=== PATIENT | female | born 1980 | race Caucasian/White ===

== ENCOUNTER → 2019-01-22 08:05 | Outpatient (CLI) | payer OTHER, SELFPAY ==
[2019-01-20 14:12] VITALS: BMI 38.0
[2019-01-22 12:18] LABS: Absolute Lymphocyte Count 1.55 X10^3/uL (0.83-4.51); Absolute Neutrophil Count 2.9 X10^3/uL (2.0-7.7); Basophil# 0.04 X10^3/uL; Basophil% 0.8 % (0-1); Eosinophil# 0.18 X10^3/uL; Eosinophils% 3.6 % (0-5); Hematocrit 39.5 % (37-47); Hemoglobin 13.2 g/dL (12.0-15.0); Lymphocyte # 1.55 X10^3/ul (4.0); Lymphocyte % 31.4 % (19-41); Mean Corp Hgb Conc 33.4 g/dL (32-36); Mean Corpuscular Hgb 29.4 pg (27.0-32.0); Mean Platelet Vol. 9.8 fl (6.2-12.0); Monocyte# 0.31 X10^3/uL; Monocyte% 6.3 % (0-10); NRBC Flagged by Analyzer 0 % (0-5); Neutrophil # 2.85 X10^3/uL (2.7-7.7); Neutrophil % 57.7 % (47-70); Platelet Count 193 K/mm3 (150-450); RBC Distribution Width CV 12.7 % (11.6-14.6); RBC Distribution Width SD 40.7 fl (35.1-43.9); Red Blood Count 4.49 M/mm3 (4.2-5.4); White Blood Count 4.9 K/mm3 (4.4-11.0)
[2019-01-22 12:31] LABS: Hemoglobin A1c 4.7 % (4.2-6.3)
[2019-01-22 12:34] LABS: Vitamin B12 371 pg/mL (211-911)
[2019-01-22 12:45] LABS: ALB/GLOB Ratio 1.1 RATIO (0.9-2.4); AST(SGOT) 13 U/L (15-37); Alanine Aminotransfer ALT/SGPT 20 U/L (13-56); Albumin, Serum 3.4 g/dL (3.2-5.0); Alkaline Phosphatase 36 U/L (45-117); Anion Gap 10 (5-15); BUN 13 mg/dL (7-18); BUN/Creat Ratio 21.3 RATIO (10-20); Calcium,Total 8.4 mg/dL (8.5-10.1); Chloride 106 mmol/L (98-107); Cholesterol 173 mg/dL (200); Creatinine, Serum 0.61 mg/dL (0.55-1.02); EST Glomerular Filtration Rate 116 mL/min (>60); Est Glom Filt Rate - Afr Amer 140 mL/min (>60); Glucose 83 mg/dL (74-106); High Density Lipoprotein 57 mg/dL; Potassium 3.6 mmol/L (3.5-5.1); Protein, Total 6.4 g/dL (6.4-8.2); Sodium Level 143 mmol/L (136-145); T4 Free Direct 0.94 ng/dL (0.76-1.46); Thyroid Stim Hormone (TSH) 2.08 uIU/mL (0.358-3.74); Triglycerides 80 mg/dL; Very Low Density Lipoprotein 16 mg/dL (5-40)
== END ==
PROVIDERS: Family Provider Family Medicine; PCP Internal Medicine; Visit Provider Internal Medicine
DX: F32.9 Major depressive disorder, single episode, unspecified (principal); F41.9 Anxiety disorder, unspecified; E66.9 Obesity, unspecified
CPT/HCPCS: 36415; 80053; 80061; 82607; 83036; 84439; 84443; 85025

== ENCOUNTER → 2020-02-08 17:56 | Outpatient (CLI) | payer OTHER, SELFPAY ==
[2019-08-05 18:30] VITALS: BMI 38.0
== END ==
PROVIDERS: PCP Internal Medicine; Referring Provider Physician Assistant; Visit Provider Physician Assistant
DX: U07.1 COVID-19 (principal)
CPT/HCPCS: 87635; C9803; U0003

== ENCOUNTER → 2020-08-26 08:04 | Outpatient (CLI) | payer OTHER, SELFPAY ==
[2020-08-17 16:56] VITALS: BMI 38.0
[2020-08-26 12:26] LABS: Absolute Lymphocyte Count 1.41 X10^3/uL (0.83-4.51); Absolute Neutrophil Count 1.9 X10^3/uL (2.0-7.7); Basophil# 0.04 X10^3/uL; Eosinophils% 5.2 % (0-5); Lymphocyte # 1.41 X10^3/ul (0.83-4.51); Lymphocyte % 36.9 % (19-41); Mean Corp Hgb Conc 33.3 g/dL (32-36); Mean Corpuscular Hgb 29.3 pg (27.0-32.0); Mean Platelet Vol. 9.7 fl (6.2-12.0); Monocyte# 0.26 X10^3/uL; Monocyte% 6.8 % (0-10); NRBC Flagged by Analyzer 0 % (0-5); Neutrophil % 49.8 % (47-70); Platelet Count 212 K/mm3 (150-450); RBC Distribution Width CV 12.7 % (11.6-14.6); RBC Distribution Width SD 41.1 fl (35.1-43.9); Red Blood Count 4.43 M/mm3 (4.2-5.4); White Blood Count 3.8 K/mm3 (4.4-11.0)
[2020-08-26 13:13] LABS: ALB/GLOB Ratio 1.2 RATIO (0.9-2.4); AST(SGOT) 23 U/L (15-37); Alanine Aminotransfer ALT/SGPT 30 U/L (13-56); Albumin, Serum 3.5 g/dL (3.2-5.0); Alkaline Phosphatase 39 U/L (45-117); Anion Gap 5 (5-15); BUN 13 mg/dL (7-18); BUN/Creat Ratio 18.2 RATIO (10-20); Calcium,Total 8.3 mg/dL (8.5-10.1); Chloride 108 mmol/L (98-107); Cholesterol 190 mg/dL (200); Creatinine, Serum 0.72 mg/dL (0.55-1.02); EST Glomerular Filtration Rate 96 mL/min (>60); Est Glom Filt Rate - Afr Amer 116 mL/min (>60); Globulin 2.9 g/dL (2.2-4.2); Glucose 86 mg/dL (74-106); High Density Lipoprotein 55 mg/dL; Potassium 3.7 mmol/L (3.5-5.1); Protein, Total 6.4 g/dL (6.4-8.2); Sodium Level 140 mmol/L (136-145); Thyroid Stim Hormone (TSH) 1.94 uIU/mL (0.358-3.74); Triglycerides 60 mg/dL; Very Low Density Lipoprotein 12 mg/dL (5-40)
== END ==
PROVIDERS: Nurse Practitioner Family; PCP Internal Medicine; Visit Provider Internal Medicine
DX: Z00.00 Encounter for general adult medical examination without abnormal findings (principal); E66.9 Obesity, unspecified; F32.9 Major depressive disorder, single episode, unspecified; F41.9 Anxiety disorder, unspecified
CPT/HCPCS: 36415; 80053; 80061; 84443; 85025

== ENCOUNTER 2021-05-19 08:46 | Outpatient (CLI) | payer OTHER, SELFPAY ==
[2021-05-19 12:41] LABS: T4 Free Direct 0.96 ng/dL (0.76-1.46); Thyroid Stim Hormone (TSH) 2.18 uIU/mL (0.358-3.74)
== END 2021-05-19 23:59 | disposition home or self-care (01) ==
LOC: BIMLAB 08:47
PROVIDERS: PCP Internal Medicine; Referring Provider Internal Medicine; Visit Provider Internal Medicine
DX: N92.6 Irregular menstruation, unspecified (principal)
CPT/HCPCS: 36415; 84439; 84443

== ENCOUNTER → 2021-07-17 | Outpatient (CLI) | payer OTHER, SELFPAY ==
[2021-07-17 12:56] LABS: Absolute Lymphocyte Count 1.65 X10^3/uL (0.83-4.51); Absolute Neutrophil Count 5.6 X10^3/uL (2.0-7.7); Basophil# 0.04 X10^3/uL; Basophil% 0.5 % (0-1); Eosinophil# 0.28 X10^3/uL; Eosinophils% 3.5 % (0-5); Hematocrit 41.9 % (37-47); Hemoglobin 13.8 g/dL (12.0-15.0); Lymphocyte # 1.65 X10^3/ul (0.83-4.51); Lymphocyte % 20.6 % (19-41); Mean Corp Hgb Conc 32.9 g/dL (32-36); Mean Corpuscular Hgb 29.7 pg (27.0-32.0); Mean Corpuscular Volume 90.1 fL (81-99); Mean Platelet Vol. 10.3 fl (6.2-12.0); Monocyte# 0.38 X10^3/uL; Monocyte% 4.7 % (0-10); NRBC Flagged by Analyzer 0 % (0-5); Neutrophil # 5.63 X10^3/uL (2.7-7.7); Neutrophil % 70.3 % (47-70); Platelet Count 210 K/mm3 (150-450); RBC Distribution Width CV 12.9 % (11.6-14.6); RBC Distribution Width SD 42.3 fl (35.1-43.9); Red Blood Count 4.65 M/mm3 (4.2-5.4)
[2021-07-17 13:01] LABS: ALB/GLOB Ratio 1.2 RATIO (0.9-2.4); AST(SGOT) 21 U/L (15-37); Alanine Aminotransfer ALT/SGPT 27 U/L (13-56); Albumin, Serum 3.5 g/dL (3.2-5.0); Alkaline Phosphatase 33 U/L (45-117); Anion Gap 3 (5-15); BUN 15 mg/dL (7-18); BUN/Creat Ratio 21.6 RATIO (10-20); Calcium,Total 8.8 mg/dL (8.5-10.1); Chloride 109 mmol/L (98-107); Cholesterol 187 mg/dL (200); Creatinine, Serum 0.69 mg/dL (0.55-1.02); EST Glomerular Filtration Rate 99 mL/min (>60); Est Glom Filt Rate - Afr Amer 120 mL/min (>60); Glucose 91 mg/dL (74-106); High Density Lipoprotein 55 mg/dL; Potassium 3.8 mmol/L (3.5-5.1); Protein, Total 6.5 g/dL (6.4-8.2); Sodium Level 140 mmol/L (136-145); Triglycerides 101 mg/dL; Very Low Density Lipoprotein 20 mg/dL (5-40)
== END | disposition home or self-care (01) ==
LOC: BIMLAB 08:42
PROVIDERS: PCP Internal Medicine; Referring Provider Internal Medicine; Visit Provider Internal Medicine
DX: Z00.00 Encounter for general adult medical examination without abnormal findings (principal)
CPT/HCPCS: 36415; 80053; 80061; 85025

== ENCOUNTER → 2021-12-28 | Outpatient (CLI) | payer OTHER, SELFPAY ==
--- NOTE | 2021-12-28 08:39 | BI_ITS ---
MAMMOGRAPHY - BILATERAL SCREENING REASON FOR EXAM: Female, 41 years old. Routine annual screening examination. PERTINENT HISTORY: Non-contributory. TECHNIQUE: Digital bilateral breast jose (3D mammographic acquisition) in the CC and MLO projections. 2-D mediolateral oblique (MLO) and craniocaudad (CC) views of both breasts were obtained. CAD: Full Field Digital Mammography with Computer Added Detection was performed. COMPARISON: Comparison is made with prior outside examination dated 10/13/2020. FINDINGS: Breast Composition: There are scattered areas of fibroglandular density. There are no dominant masses or suspicious calcifications. No other significant abnormalities are identified. There has been no significant change since the prior study. BI/SCRN MAMM (CAD)W/JOSE BILAT IMPRESSION: Stable bilateral screening mammogram. Yearly follow-up mammogram recommended. (A) ASSESSMENT CATEGORY: BIRADS Category 1: Negative. A letter regarding these results will be sent to the patient by the facility within 30 days. Approximately 10% of breast cancers are not detected by mammography. A normal mammogram should not delay biopsy of a clinically suspicious abnormality. [id number] Electronically Signed: Enmanuel Kelly MD at 9:29 EDT ,
== END | disposition home or self-care (01) ==
LOC: OPBI 08:37
PROVIDERS: PCP Internal Medicine; Visit Provider Internal Medicine
DX: Z12.31 Encounter for screening mammogram for malignant neoplasm of breast (principal)
CPT/HCPCS: 77063; 77067

== ENCOUNTER → 2023-05-13 | Outpatient (CLI) | payer OTHER, SELFPAY ==
--- NOTE | 2023-05-13 09:34 | BI_ITS ---
MAMMOGRAPHY - BILATERAL SCREENING REASON FOR EXAM: Female, 42 years old. Routine annual screening examination. PERTINENT HISTORY: Non-contributory. TECHNIQUE: Digital bilateral breast jose (3D mammographic acquisition) in the CC and MLO projections. 2-D mediolateral oblique (MLO) and craniocaudad (CC) views of both breasts were obtained. CAD: Full Field Digital Mammography with Computer Added Detection was performed. COMPARISON: Comparison is made with prior study December 28, 2021. FINDINGS: Breast Composition: The breasts are heterogeneously dense, which may obscure small masses. There are no dominant masses or suspicious calcifications. No other significant abnormalities are identified. There has been no significant change since the prior study. BI/SCRN MAMM (CAD)W/JOSE BILAT IMPRESSION: Stable bilateral screening mammogram. Yearly follow-up mammogram recommended. (A) ASSESSMENT CATEGORY: BIRADS Category 1: Negative. A letter regarding these results will be sent to the patient by the facility within 30 days. Approximately 10% of breast cancers are not detected by mammography. A normal mammogram should not delay biopsy of a clinically suspicious abnormality. [id number] Electronically Signed: Enmanuel Kelly MD at 11:20 EST ,
--- OUTSIDE RECORDS SUMMARY | 2023-05-13 09:52 | XMS RPT_ITS | CCD ---
Author Name Unknown Address 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 Station Attendant Name Role Phone SCARLET SANTOS Unavailable Unavailable PHYSICIAN, NONE Unavailable Unavailable Suzy Hernadez DO Primary Care Provider Suzy Hernadez DO Primary Care Provider MELISSA ARANGO Attending Unavailable SUZY HERNADEZ Primary Care Unavailable Medications Current Medications Medication Drug Class(es) Dates Sig (Normalized) Sig (Original) levonorgestrel 0.312563 mg/hr intrauterine system (4 sources) Progestin, Progestin-containi ng Intrauterine Device Start: 06-22-2021 End: 06-20-2028 levonorgestrel (MIRENA) 20 mcg/24 hours (7 yrs) 52 mg IUD Indications: Encounter for IUD insertion 1 Each by INTRAUTERINE route as directed. 1 Each 0 06/22/2021 06/20/2028 Active Completed/Discontinued Medications Medication Drug Class(es) Dates Sig (Normalized) Sig (Original) busPIRone hydrochloride 7.5 mg oral tablet (1 source) Start: 02-11-2019 End: 06-12-2021 busPIRone (BUSPAR) 7.5 mg tablet magnesium oxide 200 mg oral tablet (2 sources) Start: 05-01-2021 End: 12-28-2021 magnesium oxide 200 mg magnesium tab miSOPROStol 0.2 mg oral tablet (3 sources) Prostaglandin E1 Analog Start: 06-13-2021 End: 07-31-2021 miSOPROStol (CYTOTEC) 200 mcg tablet Use 2 tablets vaginally as directed. The night before the procedure and the morning of the procedure. 4 tablet 0 06/13/2021 07/31/2021 Discontinued (Other) Problems Problem Classification Problem Date Documented Da te Episodic/Chronic Contraceptive and procreative management (4 sources) Patient encounter status; Translations: [Encounter for insertion of intrauterine contraceptive device] Episodic Endometriosis (1 source) Uterine adenomyosis; Translations: [Endometriosis of uterus] Chronic Other female genital disorders (2 sources) Abnormal uterine bleeding; Translations: [Abnormal uterine and vaginal bleeding, unspecified] Chronic Other screening for suspected conditions (not mental disorders or infectious disease) (1 source) Cancer cervix screening status; Translations: [Encounter for screening for malignant neoplasm of cervix] Episodic Results Test Name Value Interpretation Reference Range Facil ity Vital Signs Date Time Vital Sign Value Performing Clinician Darcie landrum 12-28-2021 10:01-0400 Body height 168 cm Melissa Nba FOIL SPOOLER.ASSOCIATE PROFESSOR OF MATHEMATICS Work Phone: [facility] 12-28-2021 10:01-0400 Body weight 111.13 kg Melissa Nba FOIL SPOOLER.ASSOCIATE PROFESSOR OF MATHEMATICS Work Phone: [facility] 12-28-2021 10:01-0400 Diastolic blood pressure 80 mm[Hg] Melissa Irvington FOIL SPOOLER.ASSOCIATE PROFESSOR OF MATHEMATICS Work Phone: [facility] 12-28-2021 10:01-0400 Systolic blood pressure 124 mm[Hg] Melissa Irvington FOIL SPOOLER.ASSOCIATE PROFESSOR OF MATHEMATICS Work Phone: [facility] 07-31-2021 12:54-0400 Body weight 112.95 kg Melissa Nba FOIL SPOOLER.ASSOCIATE PROFESSOR OF MATHEMATICS Work Phone: [facility] 07-31-2021 12:54-0400 Diastolic blood pressure 74 mm[Hg] Melissa Irvington FOIL SPOOLER.ASSOCIATE PROFESSOR OF MATHEMATICS Work Phone: [facility] 07-31-2021 12:54-0400 Systolic blood pressure 116 mm[Hg] Melissa Nba FOIL SPOOLER.ASSOCIATE PROFESSOR OF MATHEMATICS Work Phone: [facility] 06-22-2021 10:03-0400 Body weight 112.95 kg Melissa Nba FOIL SPOOLER.ASSOCIATE PROFESSOR OF MATHEMATICS Work Phone: [facility] 06-22-2021 10:03-0400 Diastolic blood pressure 94 mm[Hg] Melissa Nba FOIL SPOOLER.ASSOCIATE PROFESSOR OF MATHEMATICS Work Phone: [facility] 06-22-2021 10:03-0400 Systolic blood pressure 130 mm[Hg] Melissa Irvington FOIL SPOOLER.ASSOCIATE PROFESSOR OF MATHEMATICS Work Phone: [facility] 06-12-2021 12:39-0400 Body weight 114.31 kg Melissa Mcnallycalf FOIL SPOOLER.ASSOCIATE PROFESSOR OF MATHEMATICS Work Phone: [facility] 06-12-2021 12:39-0400 Diastolic blood pressure 86 mm[Hg] Melissa Nba FOIL SPOOLER.ASSOCIATE PROFESSOR OF MATHEMATICS Work Phone: [facility] 06-12-2021 12:39-0400 Systolic blood pressure 124 mm[Hg] Melissa Nba FOIL SPOOLER.ASSOCIATE PROFESSOR OF MATHEMATICS Work Phone: [facility] Encounters Encounter Date Encounter Type Care Provider Facility Start: 04-05-2023 End: 04-06-2023 ambulatory MELISSA ARANGO Facility:[facility] Start: 04-05-2023 Encounter for gynecological examination (general) (routine) without abnormal findings MELISSA ARANGO [facility] Start: 12-28-2021 End: 12-28-2021 Patient encounter procedure Melissa Aranog FOIL SPOOLER.VELASQUEZ Work Phone: OB/Gynecology Procedures Date Procedure Procedure Detail Performing Clinician Start: 06-22-2021 Urine test visual color cmprsn meths Melissa Garrettf FOIL SPOOLER.VELASQUEZ Work Phone: Start: 10-13-2020 Mammography Melissa cuello FOIL SPOOLER.ASSOCIATE PROFESSOR OF MATHEMATICS Work Phone: Plan of Treatment Date Care Activity Detail Author Start: 07-21-2022 Urine microalbumin profile DTAP,TDAP,TD (2 - Td or Tdap) [facility] Start: 11-23-2021 Influenza vaccination [facility] Start: 10-13-2021 Mammography MAMMOGRAM [facility] Start: 09-13-2021 HPV TESTING HPV TESTING [facility] Start: 09-13-2021 PAP TESTING PAP TESTING [facility] Start: 03-25-2021 DEPRESSION ASSESSMENT DEPRESSION ASSESSMENT [facility] Start: 11-23-2020 Influenza vaccination INFLUENZA (#1) [facility] Start: 11-13-1997 HEPATITIS C SCREENING HEPATITIS C SCREENING [facility] Start: 1991 Adult depression screening assessment DEPRESSION SCREENING [facility] Start: 11-13-1984 COVID-19 VACCINE (#1) COVID-19 VACCINE (#1) [facility] Start: 11-13-1984 COVID-19 VACCINE (1) COVID-19 VACCINE (1) [facility] Start: 05-16-1980 COVID-19 VACCINE (#1) COVID-19 VACCINE (#1) [facility] Start: 1979 HEPATITIS B (1 of 3 - 3-dose series) HEPATITIS B (1 of 3 - 3-dose series) [facility] Insertion intrauteri ne device iud INSERT INTRAUTERINE DEVICE Procedures Routine Adenomyosis Ordered: 06/13/2021 Work Phone: Immunizations Immunization Date Immunization Notes Care Provider Frank roger 06-04-2016 RHO(D) immune globul in- IV or IM Melissa Nba FOIL SPOOLER.[facility] Work Phone: [facility] Work Phone: 01-02-2016 influenza, seasonal, injectable Melissa Nba FOIL SPOOLER.[facility] Work Phone: [facility] 07-21-2012 tetanus toxoid, redu tonie diphtheria toxoid, and acellular pertussis vaccine, adsorbed Melissa Irvington FOIL SPOOLER.[facility] Work Phone: [facility] Work Phone: 06-16-2012 RHO(D) immune globul in- IV or IM Melissa Irvington FOIL SPOOLER.ASSOCIATE PROFESSOR OF MATHEMATICS Work Phone: [facility] Work Phone: 02-15-2012 influenza virus vaccine, unspecified formulation Melissa Nba FOIL SPOOLER.[facility] Work Phone: [facility] 02-15-2012 RHO(D) immune globul in- IV or IM Melissa Nba FOIL SPOOLER.[facility] Work Phone: [facility] Payers Date Payer Category Payer Unknown MMO MMO [employer] [id number] 2018-Present [phone] [address] [place] [address] PPO [id number] 2018 Unknown MMO MMO [employer] [id number] 2018-Present [phone] [address] [place] [address] PPO [id number] 2017 Unknown [id number] Social History Date Type Detail Facility Start: 12-28-2021 Tobacco smoking stat [facility] Never smoked tobacco [facility] Start: 06-12-2021 End: 12-28-2021 Alcohol intake Current drinker of alcohol (finding) [facility] Start: 01-10-2012 History SDOH Alcohol Comment Occasionally,NOT WHILE [facility] Start: 1980 Sex Assigned At Not on file [facility] [place] Start: 06-02-2021 End: 12-28-2021 Exposure to SARS-CoV-2 (event) Not sure [facility] Start: 12-28-2021 Tobacco use and exposure Smoke less tobacco non-user [facility] Clinical Notes 01-02-2016 to 04-05-2023 Melissa Arango APRN.CNP - 12/28/2021 9:55 AM EDTRewilfrido Arango APRN.CNP - 07/31/2021 12:51 PM EDTPatient Janel Arango APRN.CNP - 06/22/2021 9:54 AM EDT Note Date & Type Note Facility 04-05-2023 Note HNO ID: [id number] Author: MELISSA ARANGO APRN.CNP Service: ? Author Type: Nurse Practitioner Type: Progress Notes Filed: 04/05/2023 10:07 Note Text: [employer]ter offered: Patient declinesAmalia De León is a 42 year old who presents for an annual gynecologic exam without complaints. Menses: no menses - Mirena IUD. Random spotting Contraception: IUD and tubal sterilization HPV vaccine: No Last Pap: 01/04/2022 normal HPV: 01/02/2022 negative History of abnormal pap: No Last mammogram: 2021normal @ [facility] Sexually active: Yes 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 History LMP: 12/08/2021 (Exact Date), IUD Age at Menarche: Age at First : Age at Menopause: Senior Engineering Technician History Comments: Sexual Activity: Yes; Male Contraception: Tubal Ligation PAST MEDICAL HISTORY Diagnosis Date Abnormal Pap smear of cervix Anxiety state Depression Generalized anxiety disorder History of HPV infection Infertility, female Migraine PAST SURGICAL HISTORY Procedure Laterality Date DELIVERY ONLY 09/08/2012 , low transverse DELIVERY ONLY 08/07/2016 DANDC (MISSED AB 1ST TRIMESTER) 06/2015 KNEE ARTHROSCOPY/SURGERY PAST SURGICAL HISTORY OF 2019 microdiscectomy PCHG TUBAL W/ Bilateral 08/07/2016 UNSPECIFIED ORAL SURGERY PROCEDURE, BY REPORT FAMILY HISTORY Problem Relation Age of Onset Hypertension Mother other (migraine) Mother other (endometrial cancer) Mother Lipids Father High Cholesterol Heart disease Father Cancer Maternal Grandmother Diabetes Maternal Grandmother Cancer Maternal Grandfather Cancer Paternal Grandmother Cancer Paternal Grandfather SOCIAL HISTORY Social History Tobacco Use Smoking status: Never Passive exposure: Current Smokeless tobacco: Never Vaping Use Vaping Use: Never used Substance Use Topics Alcohol use: Yes Comment: Occasionally,NOT WHILE Drug use: No REVIEW OF SYSTEMS Abdomen: No abdominal pain, nausea, vomiting, diarrhea, or constipation. No bloating, early satiety, indigestion, or increased flatulence. Bladder: No dysuria, gross hematuria, urinary frequency, urinary urgency, or incontinence. Breast: No breast lumps, nipple d/c, overlying skin changes, redness or skin retraction. Allergies and current medication updated:Yes EXAM: Ht 5' 5.5 (1.66m) Wt 211 lb 6.4 oz (95.9kg) LMP 12/08/2021 BMI 34.63 kg/(m2). GENERAL: pleasant, female in no apparent distress HEENT: Normocephalic, atraumatic, mucus membranes moist, and no lesions NECK: Supple, full range of motion, no adenopathy, and thyroid normal DERMATOLOGY: Normal, without lesions, non-icteric, and non-hirsute BREAST: soft, non-tender, symmetric, no dominant mass, normal nipple-areolar complex, no lymphadenopathy, and no nipple discharge CHEST: Normal inspiratory effort ABDOMEN: soft, non-tender, and no masses PELVIC: external genitalia normal, normal Bartholin's glands, urethra, [place]'s glands, no vulvar lesions, no cervical lesions, good vaginal support, physiologic discharge present, normal appearing perineal body and perianal region, IUD strings visible BIMANUAL: uterus normal size, shape and consistency, no adnexal masses, and non-tender RECTOVAGINAL: deferred. NEURO: alert and oriented x3,exam grossly non-focal EXTREMITIES: normal ASSESSMENT/PLAN: 1) Health maintenance: Pap/HPV up to date. Mammogram up to date . Nutrition, exercise and routine health maintenance exams reviewed. Calcium/Vitamin D supplementation information provided. 2) Contraception: IUD. Contraceptive options reviewed and information provided. 3) STD screening: Declined STD check. 4) Follow up one year or sooner as needed Melissa Arango APRN.[facility] 12-28-2021 History of Presen t illness Narrative Genet is a 41 year old who presents for an annual gynecologic exam without complaints. Menses: cycles every 25-30 days and 7 days of flow. Light flow Contraception: IUD and tubal sterilization HPV vaccine: No Last Pap: 09/24/2016 normal HPV: 09/18/2016 negative History of abnormal pap: No Last mammogram: 2021 done at [facility] Sexually active: Yes Patient concerns for STD exposure: No. Pain with intercourse: No Postcoital bleeding: No 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 History LMP: 05/16/2021 (Exact Date), IUD Age at Menarche: Age at First : Age at Menopause: Senior Engineering Technician History Comments: Sexual Activity: Yes; Male Contraception: Tubal Ligation PAST MEDICAL HISTORY Diagnosis Date Abnormal Pap smear of cervix Anxiety state Depression History of HPV infection Infertility, female Migraine PAST SURGICAL HISTORY Procedure Laterality Date DELIVERY ONLY 09/08/2012 , low transverse DELIVERY ONLY 08/07/2016 D&C (MISSED AB 1ST TRIMESTER) 06/2015 KNEE ARTHROSCOPY/SURGERY PAST SURGICAL HISTORY OF 2019 microdiscectomy PCHG TUBAL W/ Bilateral 08/07/2016 UNSPECIFIED ORAL SURGERY PROCEDURE, BY REPORT FAMILY HISTORY Problem Relation Age of Onset Hypertension Mother other (migraine) Mother Lipids Father High Cholesterol Cancer Maternal Grandmother Diabetes Maternal Grandmother Cancer Maternal Grandfather Cancer Paternal Grandmother Cancer Paternal Grandfather SOCIAL HISTORY Social History Tobacco Use Smoking status: Never Smokeless tobacco: Never Vaping Use Vaping Use: Never used Substance Use Topics Alcohol use: Yes Comment: Occasionally,NOT WHILE Drug use: No REVIEW OF SYSTEMS Abdomen: No abdominal pain, nausea, vomiting, diarrhea, or constipation. No bloating, early satiety, indigestion, or increased flatulence. Bladder: No dysuria, gross hematuria, urinary frequency, urinary urgency, or incontinence. Breast: No breast lumps, nipple d/c, overlying skin changes, redness or skin retraction. Allergies and current medication updated:Yes EXAM: LMP 05/16/2021 GENERAL: pleasant, female in no apparent distress HEENT: Normocephalic, atraumatic, mucus membranes moist, and no lesions NECK: Supple, full range of motion, no adenopathy, and thyroid normal DERMATOLOGY: Normal, without lesions, non-icteric, and non-hirsute BREAST: soft, non-tender, symmetric, no dominant mass, normal nipple-areolar complex, no lymphadenopathy, and no nipple discharge CHEST: Normal inspiratory effort ABDOMEN: soft, non-tender, and no masses PELVIC: external genitalia normal, normal Bartholin's glands, urethra, [place]'s glands, no vulvar lesions, no cervical lesions, good vaginal support, physiologic discharge present, normal appearing perineal body and perianal region, IUD string not seen BIMANUAL: uterus normal size, shape and consistency, no adnexal masses, and non-tender RECTOVAGINAL: deferred. NEURO: alert and oriented x3,exam grossly non-focal EXTREMITIES: normal ASSESSMENT/PLAN: 1) Health maintenance: Pap done with HPV. Mammogram up to date .Done at [facility] Nutrition, exercise and routine health maintenance exams reviewed. 2) Contraception: IUD and tubal sterilization. Contraceptive options reviewed and information provided. 3) STD screening: Declined STD check. 4) Follow up one year or sooner as needed Melissa Arango APRN.ASSOCIATE PROFESSOR OF MATHEMATICS documented in this encounter [facility] 07-31-2021 History of Presen t illness Narrative Genet Dash presents today for IUD check. She had a Mirena placed on 06/22/21. She has had spotting since placement. REVIEW OF SYSTEMS: PAIN ASSESSMENT: Negative for pain, history of chronic pain, or current treatment for a chronic pain condition. PHYSICAL EXAMINATION: LMP 05/16/2021 EXTERNAL GENITALIA: Normal genitalia and Bartholins, Urethra, [place] normal CERVIX: smooth, no lesions. String tip seen just inside the os. UTERUS: normal size ADNEXA: negative for tenderness or masses IMPRESSION/PLAN: IUD correctly positioned. Follow up for annual exam or sooner if needed. Melissa Arango CNP I spent a total of 20 minutes on the date of the service which included preparing to see the patient, [id number] patient care, completing clinical documentation, obtaining and/or reviewing separately obtained history, performing a medically appropriate examination and counseling and educating the patient/family/caregiver. documented in this encounter [facility] 06-22-2021 Instructions Melany Raymond MA - 06/22/2021 9:55 AM EDT POST IUD INSTRUCTIONS You may have irregular bleeding during the first 3 months of use. You may have mild-severe cramping for the next 48 hours. You may use over the counter medication (Motrin, Tylenol) as needed. Your IUD must be removed or replaced based on the following table: IUD Type Removed or replaced within: Dunia 3 years Kyleena 5 years Mirena 7 years Paragard 10 years Call my office for signs/symptoms of infection such as severe cramping, fever, or unusual bleeding. Check for string placement as instructed by your doctor. If you have any additional questions, please contact the office. documented in this encounter [facility] 06-22-2021 History of Presen t illness Narrative Genet presents today for IUD insertion for menstrual dysfunction. Patient's last menstrual period was 05/16/2021 (exact date). GC/chlamydia: Not done: no risk factors and/or patient declines screening test: negative Side effects including irregular bleeding were discussed with the patient. The patient understands that it should be removed in 7 years or sooner if the patient desires a . IUD source: office provided IUD lot #: [id number] Exp date: 06/2023 UNIVERSAL PROTOCOL / SAFETY CHECKLIST Procedure to be Performed: Mirena insertion Sign In: A Moment of CARE was completed. Personnel directly involved with the procedure wore the appropriate PPE (Personal Protective Equipment). Patient/Surrogate Stated/Verified: PATIENT VERIFIED(optional for EMERGENT procedures): Patient name, Date of , Relevant allergies and The intended procedure Time Out Communication: Intended patient and procedure match the source documents. Consent documented and matches the intended procedure. Sign Out: SIGN OUT (optional for EMERGENT procedures): No specimen collected. All instruments, equipment, possible retained foreign bodies accounted for. The uterus sounded to 9 cm and the uterus is Anteverted.. After prepping the cervix with betadine and using sterile technique, the Mirena IUD was inserted without difficulty and the string was cut to 2cm from the external os of the cervix. Patient tolerated procedure well. PLAN: Patient was advised to observe for signs and symptoms of infection including but not limited to fever, malodorous vaginal discharge and/or pain. The patient was told to check the string monthly for accurate placement. Bleeding expectations were reviewed. Follow up in one month. Melissa Arango APRN.[facility]ASQUEZ documented in this encounter [facility] 06-13-2021 Miscellaneous Notes Patient called and appointment scheduled. Zeenat Hunter RN Pt would like to proceed with Mirena IUD for adenomyosis. cytotec explain and sent to the pharmacy. Please contact pt to schedule appt. Melissa Arango APRN.CNP I left a VM for the pt to call me back to discuss US results. Melissa Arango APRN.CNP documented in this encounter [facility] 06-12-2021 History of Presen t illness Narrative Genet Dash is a 40 year old female who presents for problem visit AUB for 3 month(s). HPI: started with a change in the cycle length and days of flow she is having spotting on most days. Cycles have been anywhere from 34, 22, and 12 days apart, flow has also picking tech and last up to 6-7 days. [place] not painful but bleeding seems to increase. 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 History LMP: 05/16/2021 (Exact Date), Having periods Age at Menarche: Age at First : Age at Menopause: Senior Engineering Technician History Comments: Sexual Activity: Yes; Male Contraception: Tubal Ligation PAST MEDICAL HISTORY Diagnosis Date Abnormal Pap smear of cervix Anxiety state Depression History of HPV infection Infertility, female Migraine PAST SURGICAL HISTORY Procedure Laterality Date DELIVERY ONLY 09/08/2012 , low transverse DELIVERY ONLY 08/07/2016 D&C (MISSED AB 1ST TRIMESTER) 06/2015 KNEE ARTHROSCOPY/SURGERY PAST SURGICAL HISTORY OF 2019 microdiscectomy PCHG TUBAL W/ Bilateral 08/07/2016 UNSPECIFIED ORAL SURGERY PROCEDURE, BY REPORT FAMILY HISTORY Problem Relation Age of Onset Hypertension Mother other (migraine) Mother Lipids Father High Cholesterol Cancer Maternal Grandmother Diabetes Maternal Grandmother Cancer Maternal Grandfather Cancer Paternal Grandmother Cancer Paternal Grandfather Social History Tobacco Use Smoking status: Never Smoker Smokeless tobacco: Never Used Vaping Use Vaping Use: Never used Substance Use Topics Alcohol use: Yes Comment: Occasionally,NOT WHILE Drug use: No Current Outpatient Medications Medication Sig busPIRone (BUSPAR) 7.5 mg tablet No current facility-administered medications for this visit. Allergies As of Date: 06/12/2021 (No Known Allergies) Fully Assessed 10/13/2020 REVIEW OF SYSTEMS Abdomen: No bloating, early satiety, indigestion, or increased flatulence. No abdominal pain, nausea, vomiting, diarrhea, or constipation. Expanded ROS: N/A Allergies and current medication updated:Yes EXAM: Wt 252 lb (114.3kg) LMP 05/16/2021 GENERAL: pleasant, female in no apparent distress HEENT: Normocephalic, atraumatic, mucus membranes moist and no lesions CHEST: Normal inspiratory effort PELVIC: external genitalia normal, normal Bartholin's glands, urethra, [place]'s glands, no vulvar lesions, no cervical lesions, good vaginal support, physiologic discharge present, normal appearing perineal body and perianal region BIMANUAL: deferred NEURO: alert and oriented x3,exam grossly non-focal EXTREMITIES: normal ASSESSMENT/PLAN: 1. Abnormal uterine bleeding (AUB) - ICD9: 626.9, ICD10: N93.9 - PELVIC US WHI - Aygestin taper Melissa Arango APRN.[facility] Medical Decision Making: Problems: Low: Acute, uncomplicated illness or injury Data: Unique test(s) ordered: 1 Risk: Low: Low risk from testing/treatment Moderate: Drug management Medical Decision Making Level: 3 - Low documented in this encounter [facility] documented as of this encounter (statuses as of 06/12/2021) [facility]10-10-2016 History of Past illness Narrative* Problem Noted Date Resolved Date Supervision of high-risk pre gnancy of elderly multigravida (>= 35 years old at time of delivery) 01/02/2016 08/16/2016 Overview: Declines aneuploidy testing Advanced maternal age in multigravida 06/16/2015 10/20/2015 Overview: 06/16/2015Advanced maternal age discussed.[facility] handouts on Genetic Amniocentesis, CVS, NIPT and nuchal ultrasound discussed. Level II ultrasound and 's services discussed. TKRN History of section 06/16/201507/24 Overview: 06/16/2015Pt had a previous C section. She desires a repeat C section by Dr Sparrow.TKRN Rh negative state in antepartum period 6 08/16/2016 Overview: States Rhogam at [facility] after SAB 06/2015 [facility] 06/16/2015Pt is RH negative. She is a Rhogam candidate. TKRN Patient requested diagnostic testing 06/16/2015 10/20/2015 Overview: 06/16/2015 Pt requests Cf Carrier screening testing. TKRN Supervision of normal first 01/21/2012 09/22/2012 Rh negative status during , antepartum 01/11/2012 09/22/2012 Obesity, unspecified 01/10/2012 09/22/2012 Overview: 01/10/2012Patient is obese. One-hour GCT done today. Immunization due 01/10/2012 09/22/2012 Overview: 01/10/2012Tetanus vaccine is not up-to-date Irregular menses 08/21/2011 07/21/2012 Pre-conception counseling 01/06/20102009 documented as of this encounter (statuses as of 06/12/2021) [facility] History of Past illness Narrative* Problem Noted Date Resolved Date Supervision of high-risk pre gnancy of elderly multigravida (>= 35 years old at time of delivery) 01/02/2016 08/16/2016 Overview: Declines aneuploidy testing Advanced maternal age in multigravida 06/16/2015 10/20/2015 Overview: 06/16/2015Advanced maternal age discussed.[facility] handouts on Genetic Amniocentesis, CVS, NIPT and nuchal ultrasound discussed. Level II ultrasound and 's services discussed. TKRN History of section 06/16/201507/24 Overview: 06/16/2015Pt had a previous C section. She desires a repeat C section by Dr Sparrow.TKRN Rh negative state in antepartum period 6 08/16/2016 Overview: States Rhogam at [facility] after SAB 06/2015 MH 06/16/2015Pt is RH negative. She is a Rhogam candidate. TKRN Patient requested diagnostic testing 06/16/2015 10/20/2015 Overview: 06/16/2015 Pt requests Cf Carrier screening testing. TKRN Supervision of normal first 01/21/2012 09/22/2012 Rh negative status during , antepartum 01/11/2012 09/22/2012 Obesity, unspecified 01/10/2012 09/22/2012 Overview: 01/10/2012Patient is obese. One-hour GCT done today. Immunization due 01/10/2012 09/22/2012 Overview: 01/10/2012Tetanus vaccine is not up-to-date Irregular menses 08/21/2011 07/21/2012 Pre-conception counseling 01/06/20102009 documented as of this encounter (statuses as of 06/13/2021) [facility] History of Past illness Narrative* Problem Noted Date Resolved Date Supervision of high-risk pre gnancy of elderly multigravida (>= 35 years old at time of delivery) 01/02/2016 08/16/2016 Overview: Declines aneuploidy testing Advanced maternal age in multigravida 06/16/2015 10/20/2015 Overview: 06/16/2015Advanced maternal age discussed.[facility] handouts on Genetic Amniocentesis, CVS, NIPT and nuchal ultrasound discussed. Level II ultrasound and 's services discussed. TKRN History of section 06/16/201507/24 Overview: 06/16/2015Pt had a previous C section. She desires a repeat C section by Dr Sparrow.TKRN Rh negative state in antepartum period 6 08/16/2016 Overview: States Rhogam at [facility] after SAB 06/2015 MH 06/16/2015Pt is RH negative. She is a Rhogam candidate. TKRN Patient requested diagnostic testing 06/16/2015 10/20/2015 Overview: 06/16/2015 Pt requests Cf Carrier screening testing. TKRN Supervision of normal first 01/21/2012 09/22/2012 Rh negative status during , antepartum 01/11/2012 09/22/2012 Obesity, unspecified 01/10/2012 09/22/2012 Overview: 01/10/2012Patient is obese. One-hour GCT done today. Immunization due 01/10/2012 09/22/2012 Overview: 01/10/2012Tetanus vaccine is not up-to-date Irregular menses 08/21/2011 07/21/2012 Pre-conception counseling 01/06/20102009 documented as of this encounter (statuses as of 06/22/2021) [facility] History of Past illness Narrative* Problem Noted Date Resolved Date Supervision of high-risk pre gnancy of elderly multigravida (>= 35 years old at time of delivery) 01/02/2016 08/16/2016 Overview: Declines aneuploidy testing Advanced maternal age in multigravida 06/16/2015 10/20/2015 Overview: 06/16/2015Advanced maternal age discussed.[facility] handouts on Genetic Amniocentesis, CVS, NIPT and nuchal ultrasound discussed. Level II ultrasound and 's services discussed. TKRN History of section 06/16/201507/24 Overview: 06/16/2015Pt had a previous C section. She desires a repeat C section by Dr Sparrow.TKRN Rh negative state in antepartum period 6 08/16/2016 Overview: States Rhogam at [facility] after SAB 06/2015 MH 06/16/2015Pt is RH negative. She is a Rhogam candidate. TKRN Patient requested diagnostic testing 06/16/2015 10/20/2015 Overview: 06/16/2015 Pt requests Cf Carrier screening testing. TKRN Supervision of normal first 01/21/2012 09/22/2012 Rh negative status during , antepartum 01/11/2012 09/22/2012 Obesity, unspecified 01/10/2012 09/22/2012 Overview: 01/10/2012Patient is obese. One-hour GCT done today. Immunization due 01/10/2012 09/22/2012 Overview: 01/10/2012Tetanus vaccine is not up-to-date Irregular menses 08/21/2011 07/21/2012 Pre-conception counseling 01/06/20102009 documented as of this encounter (statuses as of 07/31/2021) [facility] History of Past illness Narrative* Problem Noted Date Resolved Date Supervision of high-risk pre gnancy of elderly multigravida (>= 35 years old at time of delivery) 01/02/2016 08/16/2016 Overview: Declines aneuploidy testing Advanced maternal age in multigravida 06/16/2015 10/20/2015 Overview: 06/16/2015Advanced maternal age discussed.[facility] handouts on Genetic Amniocentesis, CVS, NIPT and nuchal ultrasound discussed. Level II ultrasound and 's services discussed. TKRN History of section 06/16/201507/24 Overview: 06/16/2015Pt had a previous C section. She desires a repeat C section by Dr Sparrow.TKRN Rh negative state in antepartum period 6 08/16/2016 Overview: States Rhogam at [facility] after 06/2015 MH 06/16/2015Pt is RH negative. She is a Rhogam candidate. TKRN Patient requested diagnostic testing 06/16/2015 10/20/2015 Overview: 06/16/2015 Pt requests Cf Carrier screening testing. TKRN Supervision of normal first 01/21/2012 09/22/2012 Rh negative status during , antepartum 01/11/2012 09/22/2012 Obesity, unspecified 01/10/2012 09/22/2012 Overview: 01/10/2012Patient is obese. One-hour GCT done today. Immunization due 01/10/2012 09/22/2012 Overview: 01/10/2012Tetanus vaccine is not up-to-date Irregular menses 08/21/2011 07/21/2012 Pre-conception counseling 01/06/20102009 documented as of this encounter (statuses as of 12/28/2021) [facility] Diagnosis Abnormal uterine bleeding (AUB)- Primary [facility] Diagnosis DUB (dysfunctional uterine bleeding)- Primary Other disorder of menstruation and other abnormal bleeding from female genital tract [facility] encounter [facility] Diagnosis Adenomyosis- Primary Endometriosis of uterus [facility] Diagnosis Encounter for IUD insertion- Primary Encounter for insertion of intrauterine contraceptive device [facility] Diagnosis Surveillance of intrauterine contraceptive device- Primary Surveillance of previously prescribed intrauterine contraceptive device [facility] Diagnosis Encounter for gynecological examination (general) (routine) without abnormal findings- Primary Screening for cervical cancer Screening for malignant neoplasm of the cervix Encounter for screening mammogram for breast cancer Encounter for screening for human papillomavirus (HPV) Special screening examination for human papillomavirus (HPV) documented in this encounter [facility] for referral (narrative)* Diagnostic Procedure Only (Routine) - Closed Specialty Diagnoses / Procedures Referred By Contthom t Referred To Contact [facility] Diagnoses Abnormal uterine bleeding (AUB) Procedures PELVIC US WHI US PELVIC NONOBSTETRIC REAL-TIME IMAGE COMPLETE Melissa Arango, SUDHA.ASSOCIATE PROFESSOR OF MATHEMATICS [address] [place] [address] [facility] [address] [place] [address] Referral ID Status Reason Start Date Expiration Date V isits Requested Visits Authorized [id number] Closed Auto-Generate d Referral 06/12/2021 06/12/2022 1 1 [facility] for referral (narrative)* Outpatient Procedure (Routine) - Pending Review Specialty Diagnoses / Procedures Referred By Contac t Referred To Contact [facility] Diagnoses Adenomyosis Procedures INSERT INTRAUTERINE DEVICE LEVONORGESTREL IU 52MG 5 YR INSERT INTRAUTERINE DEVICE Melissa Arango APRN.CNP [address] [place] [address] [facility] [address] [place] [address] Referral ID Status Reason Start Date Expiration Date Visits Requested Visits Authorized [id number] Pending Review Auto-Generat ed Referral 06/13/2021 06/13/2022 1 1 [facility] for referral (narrative)* Outpatient Procedure (Routine) - Pending Review Specialty Diagnoses / Procedures Referred By Contac t Referred To Contact [facility] Diagnoses Encounter for IUD insertion Procedures INSERT INTRAUTERINE DEVICE LEVONORGESTREL IU 52MG 5 YR INSERT INTRAUTERINE DEVICE Melissa Arango APRN.ASSOCIATE PROFESSOR OF MATHEMATICS [address] [place] [address] [facility] [address] [place] [address] Referral ID Status Reason Start Date Expiration Date Visits Requested Visits Authorized [id number] Pending Review Auto-Generat ed Referral 06/22/2021 06/22/2022 1 1 [facility] Summary Purpose Family History No Family History Records FoundNo Family History Records Found Advance Directives No Advanced Directives Records FoundNo Advanced Directives Records Found Medications Administered Section Inactive Administered Medications - up to 3 most recent administrations Medication Order MAR Action Action Date Dose Rate Site levonorgestrel 20 mcg/24 hours (7 yrs) 52 mg 1 Each intrauterine device (MIRENA) 1 Each, INTRAUTERINE, ONCE (UP TO 30 DAYS AMB), 1 dose, On Magali 06/22/21 at 1030, Hazardous Potential Reproductive Risk Drug: Use appropriate PPE. Given 06/22/2021 10:38 AM EDT 1 Each Additional Source Comments INFORMATION SOURCE (unrecogn ized section and content) DATE CREATED AUTHOR AUTHOR'S ORGANIZ ATION 04/09/2023 [facility] Source Comments (unrecognize d section and content) In the event this informatio n is protected by the Federal Confidentiality of Alcohol and Drug Abuse Patient Records regulations: The Federal rules restrict any use of the information to criminally investigate or prosecute any alcohol or drug abuse patient.[facility] event this information is protected by the Federal Confidentiality of Alcohol and Drug Abuse Patient Records regulations: The Federal rules restrict any use of the information to criminally investigate or prosecute any alcohol or drug abuse patient.[facility] the event this information is protected by the Federal Confidentiality of Alcohol and Drug Abuse Patient Records regulations: The Federal rules restrict any use of the information to criminally investigate or prosecute any alcohol or drug abuse patient.[facility] the event this information is protected by the Federal Confidentiality of Alcohol and Drug Abuse Patient Records regulations: The Federal rules restrict any use of the information to criminally investigate or prosecute any alcohol or drug abuse patient.[facility] the event this information is protected by the Federal Confidentiality of Alcohol and Drug Abuse Patient Records regulations: The Federal rules restrict any use of the information to criminally investigate or prosecute any alcohol or drug abuse patient.[facility] the event this information is protected by the Federal Confidentiality of Alcohol and Drug Abuse Patient Records regulations: The Federal rules restrict any use of the information to criminally investigate or prosecute any alcohol or drug abuse patient.[facility] Reason for Visit (unrecogniz ed section and content) Reason Comments DUB Reason Comments Results Reason Onset Date Comments Insertion Of IUD 06/22/2021 Specialty Diagnoses / Procedures Referred By Lashell t [facility] Diagnoses Adenomyosis Encounter for insertion of intrauterine contraceptive device Encounter for removal of intrauterine contraceptive device Procedures INSERT INTRAUTERINE DEVICE LEVONORGESTREL IU 52MG 5 YR INSERT INTRAUTERINE DEVICE REMOVE INTRAUTERINE DEVICE Melissa Arango APRN.ASSOCIATE PROFESSOR OF MATHEMATICS [address] [place] [address] [facility] [address] [place] [address] Referral ID Status Reason Start Date Expiration Date Visits Requested Visits Authorized [id number] Authorized Auto-Generat ed Referral 06/14/2021 03/24/2022 2 2 Reason Comments IUD week f/u Reason Comments [facility] Teams (unrecognized sec tion and content) Gas Station Attendant Relationship Specialty Start Date End Date Suzy Hernadez DO PCP - General Family Practice 12/28/09 Gas Station Attendant Relationship Specialty Start Date End Date Suzy Hernadez DO PCP - General Family Practice 12/28/09 Gas Station Attendant Relationship Specialty Start Date End Date Suzy Hernadez DO PCP - General Family Practice 12/28/09 Gas Station Attendant Relationship Specialty Start Date End Date Suzy Hernadez DO PCP - General Family Practice 12/28/09 Gas Station Attendant Relationship Specialty Start Date End Date Suzy Hernadez DO PCP - General Family Medicine 12/28/09 FOR RECORDS PERTAINING TO PATIENTS WHO ARE OR HAVE BEEN ENROLLED IN A CHEMICAL DEPENDENCY/SUBSTANCEABUSE PROGRAM, SOME INFORMATION MAY BE OMITTED. This clinical summary was aggregated from multiple sources. Caution should be exercised in using it in the provision of clinical care. This summary normalizes information from multiple sources, and as a consequence, information in this document may materially change the coding, format and clinical context of patient data. In addition, data may be omitted in some cases. CLINICAL DECISIONS SHOULD BE BASED ON THE PRIMARY CLINICAL RECORDS. [facility] [employer] [facility]. provides no warranty or guarantee of the accuracy or completeness of information in this document.
== END | disposition home or self-care (01) ==
LOC: OPBI 09:33
PROVIDERS: PCP Internal Medicine; Referring Provider Nurse Practitioner; Visit Provider Nurse Practitioner
DX: Z12.31 Encounter for screening mammogram for malignant neoplasm of breast (principal)
CPT/HCPCS: 77063; 77067

== ENCOUNTER → 2023-09-13 | Outpatient (CLI) | payer OTHER, SELFPAY ==
[2023-09-13 12:22] LABS: Absolute Lymphocyte Count 1.22 X10^3/uL (0.83-4.51); Absolute Neutrophil Count 3.2 X10^3/uL (2.0-7.7); Basophil# 0.04 X10^3/uL; Basophil% 0.8 % (0-1); Eosinophil# 0.15 X10^3/uL; Hematocrit 40.4 % (37-47); Hemoglobin 13.3 g/dL (12.0-15.0); Lymphocyte # 1.22 X10^3/ul (0.83-4.51); Lymphocyte % 24.8 % (19-41); Mean Corp Hgb Conc 32.9 g/dL (32-36); Mean Corpuscular Hgb 30.1 pg (27.0-32.0); Mean Corpuscular Volume 91.4 fL (81-99); Mean Platelet Vol. 9.6 fl (6.2-12.0); Monocyte# 0.31 X10^3/uL; Monocyte% 6.3 % (0-10); NRBC Flagged by Analyzer 0 % (0-5); Neutrophil # 3.19 X10^3/uL (2.7-7.7); Neutrophil % 64.9 % (47-70); Platelet Count 202 K/mm3 (150-450); RBC Distribution Width SD 42.9 fl (35.1-43.9); Red Blood Count 4.42 M/mm3 (4.2-5.4); White Blood Count 4.9 K/mm3 (4.4-11.0)
[2023-09-13 12:48] LABS: ALB/GLOB Ratio 1.2 RATIO (0.9-2.4); AST(SGOT) 20 U/L (15-37); Alanine Aminotransfer ALT/SGPT 32 U/L (13-56); Albumin, Serum 3.4 g/dL (3.2-5.0); Alkaline Phosphatase 30 U/L (45-117); Anion Gap 8 (5-15); BUN 17 mg/dL (7-18); BUN/Creat Ratio 28.9 RATIO (10-20); Calcium,Total 8.5 mg/dL (8.5-10.1); Chloride 105 mmol/L (98-107); Cholesterol 170 mg/dL (200); Creatinine, Serum 0.59 mg/dL (0.55-1.02); EST Glomerular Filtration Rate 118 mL/min (>60); Est Glom Filt Rate - Afr Amer 143 mL/min (>60); Globulin 2.9 g/dL (2.2-4.2); Glucose 91 mg/dL (74-106); High Density Lipoprotein 67 mg/dL; Potassium 4.1 mmol/L (3.5-5.1); Protein, Total 6.3 g/dL (6.4-8.2); Sodium Level 139 mmol/L (136-145); Triglycerides 48 mg/dL; Very Low Density Lipoprotein 10 mg/dL (5-40)
== END | disposition home or self-care (01) ==
LOC: BIMLAB 10:20
PROVIDERS: PCP Internal Medicine; Referring Provider Internal Medicine; Visit Provider Internal Medicine
DX: Z00.00 Encounter for general adult medical examination without abnormal findings (principal)
CPT/HCPCS: 36415; 80053; 80061; 85025

== ENCOUNTER → 2024-09-02 | Outpatient (CLI) | payer OTHER, SELFPAY ==
[2024-09-02 12:54] LABS: Absolute Lymphocyte Count 1.49 X10^3/uL (0.83-4.51); Absolute Neutrophil Count 2.7 X10^3/uL (2.0-7.7); Basophil# 0.05 X10^3/uL; Eosinophil# 0.27 X10^3/uL; Eosinophils% 5.6 % (0-5); Hematocrit 39.3 % (37-47); Hemoglobin 13.3 g/dL (12.0-15.0); Lymphocyte # 1.49 X10^3/ul (0.83-4.51); Lymphocyte % 30.8 % (19-41); Mean Corp Hgb Conc 33.8 g/dL (32-36); Mean Corpuscular Hgb 29.8 pg (27.0-32.0); Mean Corpuscular Volume 88.1 fL (81-99); Mean Platelet Vol. 9.8 fl (6.2-12.0); Monocyte# 0.31 X10^3/uL; Monocyte% 6.4 % (0-10); NRBC Flagged by Analyzer 0 % (0-5); Platelet Count 201 K/mm3 (150-450); RBC Distribution Width CV 12.4 % (11.6-14.6); RBC Distribution Width SD 40.5 fl (35.1-43.9); Red Blood Count 4.46 M/mm3 (4.2-5.4); White Blood Count 4.8 K/mm3 (4.4-11.0)
[2024-09-02 13:26] LABS: ALB/GLOB Ratio 1.9 RATIO (0.9-2.4); AST(SGOT) 26 U/L (<=31); Alanine Aminotransfer ALT/SGPT 22 U/L (<=34); Alkaline Phosphatase 34 U/L (35-104); Anion Gap 10 (5-15); BUN 14 mg/dL (4-19); BUN/Creat Ratio 19.5 RATIO (10-20); Calcium,Total 8.9 mg/dL (7.6-11.0); Carbon Dioxide 24.2 mmol/L (21.0-32.0); Chloride 106 mmol/L (98-108); Cholesterol 190 mg/dL (<=200); Creatinine, Serum 0.69 mg/dL (0.70-1.20); EST Glomerular Filtration Rate 110 (>60); Globulin 2.1 g/dL (2.2-4.2); Glucose 85 mg/dL (70-99); High Density Lipoprotein 55 mg/dL; Low Density Lipoprotein Calc. 121 mg/dL; Potassium 3.9 mmol/L (3.3-5.1); Protein, Total 6.1 g/dL (5.9-8.4); Sodium Level 140 mmol/L (133-145); Total Bilirubin 0.38 mg/dL (0.00-1.30); Triglycerides 69 mg/dL; Very Low Density Lipoprotein 14 mg/dL (5-40); cholesterol:hdl ratio screen 3.47
== END | disposition home or self-care (01) ==
LOC: BIMLAB 09:37
PROVIDERS: PCP Internal Medicine; Referring Provider Internal Medicine; Visit Provider Internal Medicine
DX: Z00.00 Encounter for general adult medical examination without abnormal findings (principal)
CPT/HCPCS: 36415; 80053; 80061; 85025

== ENCOUNTER → 2024-10-26 | Outpatient (CLI) | payer OTHER, SELFPAY ==
--- NOTE | 2024-10-26 08:15 | BI_ITS ---
EXAM: SCRN MAMM (CAD)W/JOSE BILAT DATE: 10/26/2024 CLINICAL HISTORY: F, Age 43 y/o , BREAST CANCER SCREENING TECHNIQUE: SCRN MAMM (CAD)W/JOSE BILAT COMPARISON: Prior exam(s) dated 05/13/2023 and 12/28/2021. FINDINGS: TISSUE DENSITY: There are scattered areas of fibroglandular density. Bilateral Breast Mammographic Findings: Benign-appearing round microcalcifications are seen in both breasts. No suspicious masses, suspicious cluster of microcalcifications, architectural distortion or secondary sign of malignancy is identified in either breast. BI/SCRN MAMM (CAD)W/JOSE BILAT IMPRESSION: Benign screening mammogram. OVERALL FINAL ASSESSMENT BI-RADS 2: BENIGN RECOMMENDATION: Routine annual follow-up in 1 Year A letter with findings and recommendations will be mailed to the patient. Reading Location: [id number]
--- OUTSIDE RECORDS SUMMARY | 2024-10-26 08:37 | XMS RPT_ITS | CCD ---
Author Organization [facility] Care Team Providers Care Unemployment Claims Adjudicator Name Role Phone SCARLET SANTOS Unavailable Unavailable PHYSICIAN, NONE Unavailable Unavailable Suzy Hernadez DO Primary Care Provider Suzy Hernadez DO Primary Care Provider Dr. Rhina Street Primary Care Provider [phone] Dr. Rhina Street Referring Provider [phone] ALISON Frazier Attending Provider [phone] Yenifer TINOCO, Dr. Lantigua Primary Care Provider Yenifer TINOCO, Dr. Lantigua Attending Provider [phone] Dr. Rhina Street MD Referring Provider [phone] Suzy Hernadez DO Primary Care Provider MELISSA ARANGO Attending Unavailable SUZY HERNADEZ R Primary Care Unavailable Oleghe, Efewongbe Primary Care Unavailable Oleghe, Efewongbe Attending Unavailable Oleghe, Efewongbe Referring Unavailable Oleghe, Efewongbe Primary Care Unavailable Oleghe, Efewongbe Attending Unavailable Oleghe, Efewongbe Referring Unavailable Oleghe, Efewongbe Primary Care Unavailable Oleghe, Efewongbe Attending Unavailable Oleghe, Efewongbe Referring Unavailable Oleghe, Efewongbe Primary Care Unavailable Oleghe, Efewongbe Attending Unavailable Oleghe, Efewongbe Referring Unavailable Oleghe, Efewongbe Primary Care Unavailable Oleghe, Efewongbe Attending Unavailable Oleghe, Efewongbe Referring Unavailable Medications Current Medications Medication Drug Class(es) Dates Sig (Normalized) Sig (Original) busPIRone hydrochloride 10 mg oral tablet (20 sources) Start: 03-11-2024 End: 09-02-2024 take 2 tablets by mouth twice daily Buspirone 10 mg tablet Active 20 mg PO TWICE A DAY 360 90 September 02, 2024 9:30am Start: 07-18-2023 End: 03-11-2024 take 1 tablet by mouth twice daily Buspirone 10 mg tablet Discontinued 10 mg PO TWICE A DAY 180 September 13, 2023 9:57am March 11, 2024 5:54pm Start: 03-13-2023 End: 07-18-2023 busPIRone (BUSPAR) 7.5 mg ta blet 03/13/2023 Active Start: 02-21-2023 End: 04-10-2023 take 1 tablet by mouth twice daily Buspirone 5 mg tablet Discontinued 5 mg PO TWICE A DAY 60 February 21, 2023 1:00am April 10, 2023 4:21pm start with one tab PO qd for first 1-2 weeks Start: 02-11-2019 End: 06-12-2021 take 1 tablet by mouth twice daily Buspirone 7.5 mg tablet Discontinued 7.5 mg PO TWICE A DAY 180 January 27, 2021 3:48pm May 19, 2021 9:24am Start: 01-20-2019 End: 08-05-2019 take 1 tablet by mouth twice daily Buspirone 5 mg tablet Discontinued 5 mg PO TWICE A DAY 180 March 26, 2019 3:05pm August 05, 2019 6:21pm levonorgestrel 0.066916 mg/hr intrauterine system (9 sources) Progestin, Progestin-containing Intrauterine Device Start: 07-17-2021 Levonorgestrel (Mirena) 20 mcg/24 hours (7 yrs) 52 mg intrauterine device Active 1 DEVICE INTRA-UTER ONCE July 16, 2021 11:00pm as a single dose Start: 06-22-2021 End: 06-20-2028 levonorgestrel (MIRENA) 20 m cg/24 hours (7 yrs) 52 mg IUD Indications: Encounter for IUD insertion 1 Each by INTRAUTERINE route as directed. 1 Each 06/22/2021 06/20/2028 Active Comment on above: 1 Each by INTRAUTERI NE route as directed. Multivitamin, Stress Formula (1 source) Start: 02-21-2023 take 1 tablet by mouth once daily Multivitamin, Stress Formula Active 1 TABLET PO DAILY February 21, 2023 12:00am Reactive Magnesium (2 sources) Start: 05-19-2021 take 235 mg by mouth once daily Reactive Magnesium Active 235 MG PO daily May 19, 2021 12:00am Start: 05-19-2021 take 235 mg by mouth once lorelei y Reactive Magnesium Active 235 MG PO daily May 19, 2021 1:00am traZODone hydrochloride 50 mg oral tablet (5 sources) Serotonin Reuptake Inhibitor Start: 06-04-2024 End: 09-02-2024 traZODone (DESYREL) 50 mg tablet Take 50 mg by mouth. 09/02/2024 Active Completed/Discontinued Medications Medication Drug Class(es) Dates Sig (Normalized) Sig (Original) acetaminophen 325 mg / oxyCODONE hydrochloride 5 mg oral tablet (4 sources) Opioid Agonist Start: 08-09-2016 End: 01-09-2019 Oxycodone-Acetamino phen 1 TABLET tablet Discontinued 1 - 2 {tbl} PO EVERY 6 HOURS NEEDED as needed for Pain August 09, 2016 12:00am January 09, 2019 4:12pm Start: 08-09-2016 End: 01-09-2019 take 1 tablet by mouth every six hours as needed Oxycodone-Acetaminophen Discontinued 1 - 2 TABLET PO EVERY 6 HOURS NEEDED August 08, 2016 11:00pm January 09, 2019 3:12pm 12 hr buPROPion hydrochloride 100 mg extended release oral tablet (20 sources) Aminoketone Start: 08-05-2019 End: 08-17-2020 take 1 tablet by mouth once daily in the morning Bupropion Hcl 100 mg tablet sustained-release 12 hr Discontinued 100 mg PO EVERY MORNING August 05, 2019 12:00am August 17, 2020 4:51pm Start: 01-20-2019 End: 08-05-2019 take 1 tablet by mouth once daily in the morning Bupropion Hcl 150 mg tablet extended release 24 hr Discontinued 150 mg PO EVERY MORNING March 26, 2019 3:05pm August 05, 2019 6:20pm ibuprofen 600 mg oral tablet (4 sources) Nonsteroidal Anti-inflammatory Drug Start: 08-09-2016 End: 01-09-2019 take 1 tablet by mouth every six hours as needed for pain Ibuprofen 600 MG tablet Discontinued 600 mg PO EVERY 6 HOURS as needed for Pain 60 August 09, 2016 12:00am January 09, 2019 4:12pm Magnesium (2 sources) Start: 06-04-2024 End: 09-02-2024 magnesium spray Discontinued MC June 04, 2024 12:00am September 02, 2024 9:00am magnesium oxide 200 mg oral tablet (2 sources) Start: 05-01-2021 End: 12-28-2021 magnesium oxide 200 mg magnesium tab melatonin 5 mg oral tablet (2 sources) Start: 07-18-2023 End: 06-04-2024 take 5 mg by mouth once daily at bedtime melatonin Discontinued PO July 18, 2023 12:00am June 04, 2024 4:43pm reports taking 5mg daily at bedtime miSOPROStol 0.2 mg oral tablet (3 sources) Prostaglandin E1 Analog Start: 06-13-2021 End: 07-31-2021 miSOPROStol (CYTOTEC) 200 mcg tablet Use 2 tablets vaginally as directed. The night before the procedure and the morning of the procedure. 4 tablet 0 06/13/2021 07/31/2021 Discontinued (Other) Comment on above: Use 2 tablets vagina lly as directed. The night before the procedure and the morning of the procedure. Multivitamin, Stress Formula tablet (2 sources) Start: 02-21-2023 End: 07-18-2023 Multivitamin, Stress Formula tablet Discontinued 1 {tbl} PO DAILY February 21, 2023 1:00am July 18, 2023 1:30pm norethindrone acetate 5 mg oral tablet (4 sources) Start: 06-12-2021 End: 06-22-2021 norethindrone (AYGESTIN) 5 mg tablet Indications: abnormal uterine bleeding due to hormonal imbalance Take 1 tablet TID until bleeding stops, the BID x 3 days, the daily x 3 days. 35 tablet 0 06/12/2021 06/22/2021 Discontinued (Course of therapy completed) Comment on above: Take 1 tablet TID un til bleeding stops, the BID x 3 days, the daily x 3 days. omega 9-rrr-muf-fish oil (FISH OIL) 120-180-500 mg cap (2 sources) Start: 05-01-2021 End: 12-28-2021 omega 4-vjv-zft-fish oil (FISH OIL) 120-180-500 mg cap Start: 05-01-2021 omega 3-dha-ep a-fish oil (FISH OIL) 120-180-500 mg cap [place]-3 Fatty Acids (Super [place]-3) 1,000 mg capsule (4 sources) Start: 05-19-2021 End: 07-18-2023 take 3 capsules by mouth once daily [place]-3 Fatty Acids (Super [place]-3) 1,000 mg capsule Discontinued 1900 mg PO DAILY May 19, 2021 1:00am July 18, 2023 1:30pm Start: 05-19-2021 take 3 capsules by m outh once daily [place]-3 Fatty Acids (Super [place]-3) 1,000 mg capsule Active 1900 MG PO DAILY May 19, 2021 12:00am Start: 05-19-2021 take 3 capsules by m outh once daily [place]-3 Fatty Acids (Super [place]-3) 1,000 mg capsule Active 1900 MG PO DAILY May 19, 2021 1:00am Vit-Iron Fum-Folic Ac (2 sources) Start: 06-29-2015 End: 01-09-2019 Vit-Iron Fum-Folic Ac Discontinued 1 EACH PO DAILY June 28, 2015 11:00pm January 09, 2019 3:12pm Start: 06-29-2015 End: 01-09-2019 Vit-Iron Fum-Folic Ac Discontinued 1 EACH PO DAILY June 29, 2015 12:00am January 09, 2019 4:12pm Vit-Iron Fum-Folic Ac 1 EACH tablet (2 sources) Start: 06-29-2015 End: 01-09-2019 take 1 tablet by mouth once daily before mealtime Vit-Iron Fum-Folic Ac 1 EACH tablet Discontinued 1 NMA PO DAILY June 29, 2015 12:00am January 09, 2019 4:12pm Reactive Magnesium capsule (2 sources) Start: 05-19-2021 End: 07-18-2023 take 1 capsule by mouth once daily Reactive Magnesium capsule Discontinued 235 mg PO daily May 19, 2021 1:00am July 18, 2023 1:30pm Problems Active Problems Problem Classification Problem Date Documented Date Episodic/Chronic Anxiety disorders (8 sources) Mixed anxiety and depressive disorder; Translations: [Anxiety disorder, unspecified] 01-20-2019 Chronic Contraceptive and procreative management (9 sources) Patient encounter status; Translations: [Encounter for insertion of intrauterine contraceptive device] Onset: 01-06-2010 Resolved: 01-06-2010 Episodic Endometriosis (1 source) Uterine adenomyosis; Translations: [Endometriosis of uterus] Chronic Immunizations and screening for infectious disease (6 sources) Contact with and (suspected) exposure to other viral communicable diseases; Translations: [Contact with or suspected exposure to other viral communicable disease] Onset: 01-10-2012 Resolved: 09-22-2012 07-15-2021 Episodic Other circulatory disease (5 sources) Elevated blood pressure; Translations: [Elevated blood-pressure reading, without diagnosis of hypertension] 04-10-2023 Episodic Other circulatory disease (2 sources) Elevated blood-pressure reading, without diagnosis of hypertension; Translations: [Elevated blood pressure reading without diagnosis of hypertension] Onset: 09-02-2024 04-10-2023 Episodic Other complications of (4 sources) Missed miscarriage; Translations: [Missed ] 06-30-2015 Episodic Other female genital disorders (2 sources) Abnormal uterine bleeding; Translations: [Abnormal uterine and vaginal bleeding, unspecified] Chronic Other nutritional; endocrine; and metabolic disorders (4 sources) Body mass index 30+ - obesity; Translations: [Obesity, unspecified] 01-20-2019 Chronic Other screening for suspected conditions (not mental disorders or infectious disease) (4 sources) Cancer cervix screening status; Translations: [Encounter for screening for malignant neoplasm of cervix] Onset: 09-02-2024 Episodic Other upper respiratory disease (4 sources) Seasonal allergy; Translations: [Other seasonal allergic rhinitis] 01-20-2019 Chronic Residual codes; unclassified (6 sources) Insomnia; Translations: [Insomnia, unspecified] 06-04-2024 Episodic Residual codes; unclassified (2 sources) Disturbance in sleep behavior; Translations: [Sleep disorder, unspecified] 07-18-2023 Episodic Residual codes; unclassified (1 source) Insomnia, unspecified; Translations: [Insomnia, unspecified] Onset: 09-02-2024 Episodic Screening and history of mental health and substance abuse codes (4 sources) History of clinical finding in subject; Translations: [Personal history of other mental and behavioral disorders] 01-20-2019 Episodic Unclassified (4 sources) Encounter for screening for malignant neoplasm of colon; Translations: [Z12.11 - Encounter for screening for malignant neoplasm of colon] Unclassified (2 sources) Z00.00 - Encounter for general adult medical examination without abnormal findings Past or Other Problems Problem Classification Problem Date Documented Da te Episodic/Chronic Menstrual disorders (5 sources) Irregular periods; Translations: [Irregular menstruation, unspecified] Onset: 08-21-2011 Resolved: 07-21-2012 05-19-2021 Chronic Other complications of (2 sources) RhD negative; Translations: [Other specified related conditions, unspecified trimester] Onset: 01-11-2012 Resolved: 08-16-2016 09-22-2012 Episodic Other complications of (1 source) Multigravida of advanced maternal age; Translations: [Supervision of elderly multigravida, unspecified trimester] Onset: 06-16-2015 Resolved: 10-20-2015 03-20-2021 Episodic Other complications of (1 source) High risk ; Translations: [Supervision of elderly multigravida, unspecified trimester] Onset: 01-02-2016 Resolved: 08-16-2016 03-21-2021 Episodic Other nutritional; endocrine; and metabolic disorders (1 source) Obesity; Translations: [Obesity, unspecified] Onset: 01-10-2012 Resolved: 09-22-2012 03-20-2021 Chronic Other and delivery including normal (1 source) Normal in primigravida; Translations: [Encounter for supervision of normal first , unspecified trimester] Onset: 01-21-2012 Resolved: 09-22-2012 09-22-2012 Episodic Results Test Name Value Interpretation Reference Range Facility C. trachomatis+N. gonorrhoea e DNA ELOISA+probe Ql (Unsp spec)on 10-13-2024 C. trachomatis rRNA ELOISA+probe Ql (Unsp spec) Not detected Normal Not detected [facility] Comment on above: Order Comment: Speci men Type: SWAB Ordering Facility: [facility] Address: [address] [place] [address] Performed By: #### T RVAMP, 30171-5 #### [facility] CLIA [id number] [address] [place] [address] [place] N. gonorrhoeae rRNA ELOISA+probe Ql (Unsp spec) Not detected Normal Not detected [facility] Comment on above: Order Comment: Speci men Type: SWAB Ordering Facility: [facility] Address: [address] [place] [address] Performed By: #### T RVAMP, [id number] #### [facility] CLIA [id number] [address] [place] [address] OF [place] CNOVon 10-13-2024 CNOV Office Visit (OBGYWM) ---- GENET AN ([id number]) 1980 F Date Time Provider Department 10/13/24 4:00 PM MELISSA ARANGO OBGYWM During your visit today, we recorded the following information about you: Blood pressure Weight 138/76 107.2 kg Melissa Arango APRN.MEDICAL FRONT DESK SPECIALIST 10/13/2024 4:27 PM Signed Patient declined customer resource specialist. Genet is a 43 year old who presents for an annual gynecologic exam without complaints. Menses: no menses - Mirena IUD. Random spotting Contraception: IUD and tubal sterilization HPV vaccine: No Last Pap: 01/04/2022 normal HPV: 01/02/2022 negative History of abnormal pap: No Last mammogram: [address] [facility] Patient concerns for STD exposure: No. OB History Gravida3 Para2 Term2 Preterm0 AB1 Living2 SAB1 IAB0 Ectopic0 Multiple0 Live Births2 [employer]re [employer]er History LMP: 12/08/2021 (Exact Date), IUD Age at Menarche: Age at First : Age at Menopause: Ore Mixer History Comments: Sexual Activity: Yes; Male Contraception: Tubal Ligation, I.U.D. PAST MEDICAL HISTORY Diagnosis Date Abnormal Pap [...] other (migraine) Mother other (endometrial cancer) Mother Breast Cancer Mother Uterine Cancer Mother Lipids Father High Cholesterol Heart disease Father Cancer Maternal Grandmother Diabetes Maternal Grandmother Cancer Maternal Grandfather Cancer Paternal Grandmother Cancer Paternal Grandfather SOCIAL HISTORY Social History Tobacco Use Smoking status: Never Passive exposure: Current Smokeless tobacco: Never Vaping Use Vaping status: Never Used Substance Use Topics Alcohol use: Yes Comment: Occasionally,NOT WHILE Drug use: No REVIEW OF SYSTEMS Abdomen: No abdominal pain, nausea, vomiting, diarrhea, or constipation. No bloating, early satiety, indigestion, or increased flatulence. Bladder: No dysuria, gross hematuria, urinary frequency, urinary urgency, or incontinence. Breast: No breast lumps, nipple d/c, overlying skin changes, redness or skin retraction. Allergies and current medication updated:Yes SENSITIVE EXAM: The sensitive examination was discussed with the Patient or Patient's Authorized Supervisor Steffen House. As applicable, any other physician, advance practice provider, medical student, or other health professional student that will be observing or involved in the sensitive examination for educational or training purposes was discussed with the Patient or Authorized Supervisor Steffen House. The Patient or Authorized Supervisor Steffen House has agreed to proceed with the sensitive examination. (Sensitive examination includes inspection and/or palpation of the breasts, pelvis, prostate and anorectal regions). EXAM: BP 138/76 Wt 236 lb 6.4 oz (107.2kg) LMP 12/08/2021 GENERAL: pleasant, female in no apparent distress HEENT: Normocephalic, atraumatic, mucus membranes moist, and no lesions DERMATOLOGY: Normal, without lesions, non-icteric, and non-hirsute BREAST: soft, non-tender, symmetric, no dominant mass, normal nipple-areolar complex, no lymphadenopathy, and no nipple discharge CHEST: Normal inspiratory effort ABDOMEN: soft, non-tender, and no masses PELVIC: external genitalia normal, normal Bartholin's glands, urethra, [place]'s glands, no vulvar lesions, no cervical lesions, good vaginal support, physiologic discharge present, normal appearing perineal body and perianal region, IUD strings NOT visible BIMANUAL: uterus normal size, shape and consistency, no adnexal masses, and non-tender RECTOVAGINAL: deferred. NEURO: alert and oriented x3,exam grossly non-focal EXTREMITIES: normal ASSESSMENT/PLAN: 1) Health maintenance: Pap/HPV up to date. Mammogram ordered. @ [facility] Nutrition, exercise and routine health maintenance exams reviewed. Calcium/Vitamin D supplementation information provided. Colon cancer screening: start at age 45 2) Contraception: IUD and tubal sterilization. Contraceptive options reviewed and information provided. 3) STD screening: Accepted STI check for Gonorrhea and Chlamydia. 4) Follow up one year or sooner as needed Melissa Arango APRN.VELASQUEZ Allergies As of Date: 10/13/2024 (No Known Allergies) Date Reviewed: 10/13/2024 Reviewed by: Melissa Arango APRN.MEDICAL FRONT DESK SPECIALIST - Fully Assessed Reason for Visit: Well Woman [[id number]] Primary Visit Diagnosis:Encou (more content not included)... Normal [facility] TRICHOMONAS VAGINALIS NAATon 10-13-2024 T. vaginalis DNA ELOISA+probe Ql (Unsp spec) Not detected Normal Not detected [facility] Comment on above: Order Comment: Speci men Type: SWAB Ordering Facility: [facility] Address: [address] [place] [address] Performed By: #### T RVFOX [facility], [id number] #### [facility] CLIA [id number] [address] [place] [address] [place] [address] [place] Absolute lymphocyte countOrd ered By: Rhina Street on 09-02-2024 Lymphocytes Auto (Unsp spec) [#/Vol] 1.49 10*3/uL 0.83-4.51 [facility] Absolute neutrophil countOrd ered By: Rhina Street on 09-02-2024 Neutrophils (Bld) [#/Vol] 2.7 10*3/uL 2.0-7.7 [facility] Anion gap in Serum or Plasma Ordered By: Rhina Street on 09-02-2024 Anion gap [Moles/Vol] 10 mmol/L 5-15 [facility] Automated lymphocyte count a s percentage of total leukocytesOrdered By: Rhina Street on 09-02-2024 Lymphocytes/100 WBC Auto (Unsp spec) 30.8 % 19- [facility] BUN/creatinine ratioOrdered By: margauxlouisvillerené Street on 09-02-2024 Urea nitrogen/Creatinine [Mass ratio] 19.5 mg/mg 10- [facility] Basophil percentageOrdered B y: Rhina Street on 09-02-2024 Basophils/100 WBC (Bld) 1.0 % 0-1 [facility] Bilirubin, totalOrdered By: Rhina Street on 09-02-2024 Bilirubin [Mass/Vol] 0.38 mg/dL 0.00-1.30 [facility] CBC W/Diff, Automatedon 08-23 Absolute Lymph 1.49 X10 3/uL Normal 0.83-4.51 [facility] Comment on above: Performed By: #### L 100.0100, L500.4050, L500.4100 #### [facility] [address] [place], [address] Absolute Neut 2.7 X10 3/uL Normal 2.0-7.7 [facility] Comment on above: Performed By: #### L 100.0100, L500.4050, L500.4100 #### [facility] [address] [place], [address] Basophils/100 WBC (Bld) 1.0 % Normal 0-1 [facility] Comment on above: Performed By: #### L 100.0100, L500.4050, L500.4100 #### [facility] [address] [place], [address] Eosinophils/100 WBC (Bld) 5.6 % High 0-5 [facility] Comment on above: Performed By: #### L 100.0100, L500.4050, L500.4100 #### [facility] [address] [place], [address] Erythrocyte distribution width (RBC) [Ratio] 12.4 % Normal 11.6-14.6 [facility] Comment on above: Performed By: #### L 100.0100, L500.4050, L500.4100 #### [facility] [address] [place], [address] Hematocrit (Bld) [Volume fraction] 39.3 % Normal 37-47 [facility] Comment on above: Performed By: #### L 100.0100, L500.4050, L500.4100 #### [facility] [address] [place], [address] Hemoglobin (Bld) [Mass/Vol] 13.3 g/dL Normal 12.0-15.0 [facility] Comment on above: Performed By: #### L 100.0100, L500.4050, L500.4100 #### [facility] [address] [place], [address] IG% 0.200 Normal 0.0-0.9 [facility] Comment on above: Result Comment: IG% - Immature Granulocytes (promyelocytes, myelocytes and metamyelocytes) > 1% indicates that a LEFT SHIFT is Present. Performed By: #### L 100.0100, L500.4050, L500.4100 #### [facility] [address] [place], [address] Lymphocytes/100 WBC (Bld) 30.8 % Normal 19-41 [facility] Comment on above: Performed By: #### L 100.0100, L500.4050, L500.4100 #### [facility] [address] [place], [address] MCH (RBC) [Entitic mass] 29.8 pg Normal 27.0-32.0 [facility] Comment on above: Performed By: #### L 100.0100, L500.4050, L500.4100 #### [facility] [address] [place], [address] MCHC (RBC) [Mass/Vol] 33.8 g/dL Normal 32-36 [facility] Comment on above: Performed By: #### L 100.0100, L500.4050, L500.4100 #### [facility] [address] [place], [address] MCV (RBC) [Entitic vol] 88.1 fL Normal 81-[address] [facility] Comment on above: Performed By: #### L 100.0100, L500.4050, L500.4100 #### [facility] [address] [place], [address] Monocytes/100 WBC (Bld) 6.4 % Normal 0-[address] [facility] Comment on above: Performed By: #### L 100.0100, L500.4050, L500.4100 #### [facility] [address] [place], [address] Neutrophils/100 WBC (Bld) 56.0 % Normal 47-70 [facility] Comment on above: Performed By: #### L 100.0100, L500.4050, L500.4100 #### [facility] [address] [place], [address] Nucleated RBC (Bld) [#/Vol] 0 10*3/uL Normal 0-5 [facility] Comment on above: Performed By: #### L 100.0100, L500.4050, L500.4100 #### [facility] [address] [place], [address] Platelet mean volume (Bld) [Entitic vol] 9.8 fL Normal 6.2-12.0 [facility] Comment on above: Performed By: #### L 100.0100, L500.4050, L500.4100 #### [facility] [address] [place], [address] Platelets (Bld) [#/Vol] 201 10*3/uL Normal 150-450 [facility] Comment on above: Performed By: #### L 100.0100, L500.4050, L500.4100 #### [facility] [address] [place], [address] RBC (Bld) [#/Vol] 4.46 10*6/uL Normal 4.2-5.4 [facility] Comment on above: Performed By: #### L 100.0100, L500.4050, L500.4100 #### [facility] [address] [place], [address] RDW SD 40.5 fl Normal 35.1-43.9 [facility] Comment on above: Performed By: #### L 100.0100, L500.4050, L500.4100 #### [facility] [address] [place], [address] WBC (Bld) [#/Vol] 4.8 10*3/uL Normal 4.4-11.0 [facility] Comment on above: Performed By: #### L 100.0100, L500.4050, L500.4100 #### [facility] [address] [place], [address] Calculated very low density lipoprotein (VLDL) cholesterol measurementOrdered By: Rhina Street on 09-02-2024 Calculated very low density lipoprotein (VLDL) cholesterol measurement 14 mg/dL 5-40 [facility] Carbon dioxide, total [Moles /volume] in Central venous bloodOrdered By: Rhina Street on 09-02-2024 CO2 [Moles/Vol] 24.2 mmol/L 21.0-32.0 [facility] Chloride assayOrdered By: Mick jane Street on 09-02-2024 Chloride [Moles/Vol] 106 mmol/L 98-108 [facility] Comprehensive Metabolic Prof ilon 09-02-2024 Albumin [Mass/Vol] 4.0 g/dL Normal 3.5-5.0 [facility] Comment on above: Performed By: #### L 100.0100, L500.4050, L500.4100 #### [facility] [address] [place], [address] Albumin/Globulin [Mass ratio] 1.9 {ratio} Normal 0.9-2.4 [facility] Comment on above: Performed By: #### L 100.0100, L500.4050, L500.4100 #### [facility] [address] [place], [address] ALK PHOS 34 U/L Low 35-104 [facility] Comment on above: Performed By: #### L 100.0100, L500.4050, L500.4100 #### [facility] [address] [place], [address] ALT [Catalytic activity/Vol] 22 U/L Normal <=34 [facility] Comment on above: Performed By: #### L 100.0100, L500.4050, L500.4100 #### [facility] [address] [place], [address] AST [Catalytic activity/Vol] 26 U/L Normal <=31 [facility] Comment on above: Performed By: #### L 100.0100, L500.4050, L500.4100 #### [facility] [address] [place], [address] Bilirubin [Mass/Vol] 0.38 mg/dL Normal 0.00-1.30 [facility] Comment on above: Performed By: #### L 100.0100, L500.4050, L500.4100 #### [facility] [address] [place], [address] BUN/CRE 19.5 RATIO Normal 10-20 [facility] Comment on above: Performed By: #### L 100.0100, L500.4050, L500.4100 #### [facility] [address] [place], [address] Calcium [Mass/Vol] 8.9 mg/dL Normal 7.6-11.0 [facility] Comment on above: Performed By: #### L 100.0100, L500.4050, L500.4100 #### [facility] [address] [place], [address] Chloride [Moles/Vol] 106 mmol/L Normal 98-108 [facility] Comment on above: Performed By: #### L 100.0100, L500.4050, L500.4100 #### [facility] [address] [place], [address] CO2 [Moles/Vol] 24.2 mmol/L Normal 21.0-32.0 [facility] Comment on above: Performed By: #### L 100.0100, L500.4050, L500.4100 #### [facility] [address] [place], [address] Creatinine [Mass/Vol] 0.69 mg/dL Low 0.70-1.20 [facility] Comment on above: Performed By: #### L 100.0100, L500.4050, L500.4100 #### [facility] [address] [place], [address] GAP 10 Normal 5-15 [facility] Comment on above: Performed By: #### L 100.0100, L500.4050, L500.4100 #### [facility] [address] [place], [address] GFR/1.73 sq M.predicted among non-blacks MDRD (S/P/Bld) [Vol rate/Area] 110 mL/min/{1.73_m2} Normal >60 [facility] Comment on above: Result Comment: mL/m in/1.73m2 CKD-EPI Creatinine Equation (2020) Performed By: #### L 100.0100, L500.4050, L500.4100 #### [facility] [address] [place], [address] Globulin (S) [Mass/Vol] 2.1 g/dL Low 2.2-4.2 [facility] Comment on above: Performed By: #### L 100.0100, L500.4050, L500.4100 #### [facility] [address] [place], [address] Glucose [Mass/Vol] 85 mg/dL Normal 70-99 [facility] Comment on above: Performed By: #### L 100.0100, L500.4050, L500.4100 #### [facility] [address] [place], [address] Potassium [Moles/Vol] 3.9 mmol/L Normal 3.3-5.1 [facility] Comment on above: Performed By: #### L 100.0100, L500.4050, L500.4100 #### [facility] [address] [place], [address] Sodium [Moles/Vol] 140 mmol/L Normal 133-145 [facility] Comment on above: Performed By: #### L 100.0100, L500.4050, L500.4100 #### [facility] [address] [place], [address] T PROT 6.1 g/dL Normal 5.9-8.4 [facility] Comment on above: Performed By: #### L 100.0100, L500.4050, L500.4100 #### [facility] [address] [place], [place], [address] Urea nitrogen [Mass/Vol] 14 mg/dL Normal 4-19 [facility] Comment on above: Performed By: #### L 100.0100, L500.4050, L500.4100 #### [facility] [address] [place], [place], [address] Eosinophil percentageOrdered By: Rhina Street on 09-02-2024 Eosinophils/100 WBC (Bld) 5.6 % High 0-5 [facility] Erythrocyte distribution wid th ratioOrdered By: Rhina Street on 09-02-2024 Erythrocyte distribution width (RBC) [Ratio] 12.4 % 11.6-14.6 [facility] Erythrocyte distribution wid th standard deviationOrdered By: Shenlouisvillerené Street on 09-02-2024 Erythrocyte distribution width (RBC) [Ratio] 40.5 fl 35.1-43.9 [facility] Glomerular filtration rate ( GFR) estimation/1.73 sq m using serum, plasma, or whole bOrdered By: Rhina Street on 09-02-2024 GFR/1.73 sq M.predicted among non-blacks MDRD (S/P/Bld) [Vol rate/Area] 110 mL/min/{1.73_m2} >60 [facility] Comment on above: mL/min/1.73m2 CKD-EP I Creatinine Equation (2020) Hematocrit Auto (Bld) [Volum e fraction]Ordered By: Rhina Street on 09-02-2024 Hematocrit (Bld) [Volume fraction] 39.3 % 37-47 [facility] Hemoglobin measurementOrdere d By: Rhina Street on 09-02-2024 Hemoglobin (Bld) [Mass/Vol] 13.3 g/dL 12.0-15.0 [facility] Immature granulocytes/100 WB C Auto (Bld)Ordered By: Rhina Street on 06-11-2025 Immature granulocytes/100 WBC (Bld) 0.200 % 0.0-0.9 [facility] Comment on above: IG% - Immature Granu locytes (promyelocytes, myelocytes and metamyelocytes) > 1% indicates that a LEFT SHIFT is Present. Internal Medicine Office Vis chrissie 09-02-2024 Internal Medicine Office Visit [facility] [address] [place] [address] [place] [address] OFFICE VISIT Date of Service: 09/02/24 MR#: [id number] Acct: [id number] Name: GENET AN Rep #: [id number] : 1980 Provider: Dr. Rhina gonzalez MD Age/Sex: 43/F Location[place] [facility] Status: Signed Intake Vital Signs 06/04/24 16:44 09/02/24 08:58 Height 5 ft 6 in 5 ft 6 in Weight: 234 lb 236 lb BMI 37.8 38.0 BP 114/80 128/76 H Blood Pressure Location Lt brachial Lt brachial Position Sitting Sitting Respiration 14 18 Pulse 75 87 Pulse Source Monitor Monitor Temp 97.1 F L 97.2 F L Temp Source Temporal Temporal Pulse Oximetry (%) 97 96 Oxygen Delivery Method room air room air Intake Visit Reasons: 3 M FU Chief Complaint: Preventative Geography Professor Required: No Accompanied by: Self Is patient in pain?: No Allergies No Known Allergies Allergy (Verified 09/02/24 08:54) Medications ???Medication ???Instructions ???Recorded ???Confirmed ???Type levonorgestrel (Mirena) 1 device intrauterine ONCE 07/17/2 2 09/02/24 History buspirone 10 mg tablet 20 mg (2 x 10 mg) PO BID 3 months 09/02/24 09/02/24 Rx #360 tabs trazodone 50 mg tablet 50 mg PO QHS PRN insomnia #90 tabs 09/02/24 09/02/24 Rx Nurse's Note: needs refills PFSH Medical History (Updated 09/02/24 @ 09:[address] Rhina [address] MD) Colon cancer screening Insomnia Preventative health care Menstrual irregularity H/O emotional problems Seasonal allergies Surgical History History of History of microdiscectomy Family History Grandmother Cancer Diabetes Myocardial infarction Mother Hypertension Cancer uterus , HER positive breast Father Seizures Hypertension Hyperlipemia Social History Smoking Status: Former smoker alcohol intake: current alcohol intake frequency: a few times a week Alcohol type: beer substance use type: does not use what type of physical activity do you participate in: none HPI HPI Chief Complaint: Preventative Details: GENET AN, is a 43 F who presents to the office today yearly/preventative . No acute concerns at this time. No significant personal or family history changes since her last visit. Was started on trazodone at her last visit for insomnia, she states that she takes it as needed and finds it helpful. Has not really checked her blood pressure lately because it had been good on recent checks. No tobacco or alcohol abuse. Has not had a colon cancer screening, no family history of colon cancer. Last visit with dermatology was a few years ago. Follows up with [facility] at the [facility] [place]. ROS Const Constitutional: No body ache, excessive sweating, fatigue, fever(s), frequent falls, headache(s), snoring, weakness, weight change, sleep problems or change in appetite Eyes Eyes: No blurry vision, change in vision, bulging eyes, floaters, eye pain or Light sensitivity ENT ENT: No abnormal hearing, ear or mastoid pain, tinnitus, balance problems, nosebleed/epistaxis , nasal congestion, headache(s), neck pain or sore throat Resp Respiratory: No cough, excessive phlegm production, pain on inspiration, shortness of breath, snoring or wheezing Cardio Cardiology: No chest pain at rest, chest pain with exertion, excessive sweating, shortness of breath, dyspnea on exertion, lightheadedness, orthopnea or palpitations Gastro GI: No abdominal pain, change in bowel habits, constipation, cramping, diarrhea, nausea/dyspepsia or vomiting Genitourinary-Femal e: No burning urination, painful urination, urinary incontinence, urinary frequency, blood in urine, suprapubic fullness, side pain, abnormal periods or pelvic pain Musc Musculoskeletal: No abnormal gait, joint pain, back pain, limited range of motion, neck pain, numbness, stiffness, tingling or Arthritis Skin Skin: No dry skin, redness, excessive hair growth, yellowing of the eye, lesions, itchy eyes, rash or wounds Neuro Neurology: No abnormal gait, abnormal hearing, abnormal speech, dizziness, weakness, frequent falls, headache(s), memory loss, numbness or tingling Psych Psychiatric: No anxiety, No change in appetite, No depression, No memory loss and No Thoughts of harming yourself/Others Endo Endocrine: No cold intolerance, excessive sweating, fatigue, flushing, heat intolerance, increased thirst/drinking, increased hunger or weight change Aller/Imm Allergy/Immunologic : No itchy eyes, seasonal allergy symptoms, hives or wheezing Luciano/Lymp Hematologic/Lymphat ic: No easy bleeding, easy bruising or enlarged lymph nodes Exam Const General: cooperative, comfortable and no acute distress Dionicio (more content not included)... Normal [facility] LDL calc ser/plasOrdered By: Rhina Street on 09-02-2024 Cholesterol in LDL [Mass/Vol] 121 mg/dL [facility] Comment on above: Jepcwjafwn=167-145 m g/dL & Higher Hkob=848 mg/dL or greater Laboratory - Chemistry and C hemistry - challengeOrdered By: Rhina Street on 09-02-2024 AST [Catalytic activity/Vol] 26 U/L <32 [facility] Lipid Profileon 09-02-2024 CHOL:HDL 3.47 Normal [facility] Comment on above: Performed By: #### L 100.0100, L500.4050, L500.4100 #### [facility] [address] [place], [address] Cholesterol [Mass/Vol] 190 mg/dL Normal <=200 [facility] Comment on above: Result Comment: Chol esterol level, Desirable <200 mg/dL Borderline high cholesterol 200-239 mg/dL High cholesterol >=240 mg/dL Recommendations of the NCEP Adult Treatment Panel for the following risk-cutoff thresholds for the [place] population. Performed By: #### L 100.0100, L500.4050, L500.4100 #### [facility] [address] [place], [address] Cholesterol in HDL [Mass/Vol] 55 mg/dL Normal [facility] Comment on above: Result Comment: Jie onal Cholesterol Education Program (NCEP) guidelines: <40 mg/dL: Low HDL-cholesterol (major risk factor for CHD) >= 60 mg/dL: High HDL-cholesterol (negative risk factor for CHD) HDL-cholesterol is affected by a number of factors, e.g. smoking, exercise, hormones, sex and age. Performed By: #### L 100.0100, L500.4050, L500.4100 #### [facility] [address] [place], [address] Cholesterol in LDL [Mass/Vol] 121 mg/dL Normal [facility] Comment on above: Result Comment: Bord cvplsz=972-098 mg/dL Higher Onfk=609 mg/dL or greater Performed By: #### L 100.0100, L500.4050, L500.4100 #### [facility] [address] [place], [address] Cholesterol in VLDL [Mass/Vol] 14 mg/dL Normal 5-40 [facility] Comment on above: Performed By: #### L 100.0100, L500.4050, L500.4100 #### [facility] [address] [place], [address] Triglyceride [Mass/Vol] 69 mg/dL Normal [facility] Comment on above: Result Comment: The drugs N-Acetylcysteine and Metamizole may falsely depress this assay. Normal range: <150 mg/dL Borderline High: 150-199 mg/dL High: 200-499 mg/dL Very High: >500 mg/dL Performed By: #### L 100.0100, L500.4050, L500.4100 #### [facility] [address] [place], [address] MCV (mean corpuscular volume ) determinationOrdered By: Rhina Street on 09-02-2024 MCV (RBC) [Entitic vol] 88.1 fL 81-99 [facility] Mean corpuscular hemoglobin (MCH) determinationOrdered By: Rhina Street on 09-02-2024 MCH (RBC) [Entitic mass] 29.8 pg 27.0-32.0 [facility] Mean corpuscular hemoglobin concentration (MCHC) determinationOrdered By: Rhina Street on 09-02-2024 MCHC (RBC) [Mass/Vol] 33.8 g/dL 32-36 [facility] Mean platelet volume determi nationOrdered By: Rhina Street on 09-02-2024 Platelet mean volume (Bld) [Entitic vol] 9.8 fL 6.2-12.0 [facility] Monocyte percentageOrdered B y: Rhina Street on 09-02-2024 Monocytes/100 WBC (Bld) 6.4 % 0-10 [facility] Neutrophil percentageOrdered By: Rhina Street on 09-02-2024 Neutrophils/100 WBC (Bld) 56.0 % 47-70 [facility] Nucleated red blood cell per centageOrdered By: Rhina Street on 09-02-2024 Nucleated RBC/100 WBC (Bld) [Ratio] 0 % 0-5 [facility] Platelet countOrdered By: Mick Street on 09-02-2024 Platelets (Bld) [#/Vol] 201 10*3/uL 150-450 [facility] Potassium measurement (mass/ volume)Ordered By: Rhina Street on 09-02-2024 Potassium (Unsp spec) [Mass/Vol] 3.9 mmol/L 3.3-5.1 [facility] RBC Auto (Bld) [#/Vol]Ordere d By: Rhina Street on 09-02-2024 RBC (Bld) [#/Vol] 4.46 10*6/uL 4.2-5.4 [facility] Screening total cholesterol/ high density lipoprotein (HDL) cholesterol ratioOrdered By: Rhina Street on 09-02-2024 Cholesterol.total/Choles terol in HDL [Mass ratio] 3.47 {ratio} [facility] Serum creatinine measurement (mass/volume)Ordered By: Rhina Street on 09-02-2024 Creatinine [Mass/Vol] 0.69 mg/dL Low 0.70-1.20 [facility] Serum globulin measurementOr dered By: Rhina Street on 09-02-2024 Globulin (S) [Mass/Vol] 2.1 g/dL Low 2.2-4.2 [facility] Serum glucose measurement (m ass/volume)Ordered By: Rhina Street on 09-02-2024 Glucose [Mass/Vol] 85 mg/dL 70-99 [facility] Serum or plasma alanine haque otransferase (ALT) measurementOrdered By: Rhina Street on 09-02-2024 ALT [Catalytic activity/Vol] 22 U/L <35 [facility] Serum or plasma albumin mauro urement (mass/volume)Ordered By: Rhina Street on 09-02-2024 Albumin [Mass/Vol] 4.0 g/dL 3.5-5.0 [facility] Serum or plasma albumin/glob ulin mass ratioOrdered By: Rhina Street on 09-02-2024 Albumin/Globulin [Mass ratio] 1.9 {ratio} 0.9-2.4 [facility] Serum or plasma alkaline beth sphatase measurementOrdered By: Rhina Street 09-02-2024 ALP [Catalytic activity/Vol] 34 U/L Low 35-104 [facility] Serum or plasma calcium mauro urement (mass/volume)Ordered By: Rhina Street on 09-02-2024 Calcium [Mass/Vol] 8.9 mg/dL 7.6-11.0 [facility] Serum or plasma cholesterol in HDL measurement (mass/volume)Ordered By: Rhina Street on 09-02-2024 Cholesterol in HDL [Mass/Vol] 55 mg/dL >40 [facility] Comment on above: National Cholesterol Education Program (NCEP) guidelines:<40 mg/dL: Low HDL-cholesterol (major risk factor for CHD)>= 60 mg/dL: High HDL-cholesterol (negative risk factor for CHD)HDL-cholesterol is affected by a number of factors, e.g. smoking, exercise, hormones, sex and age. Serum or plasma cholesterol measurement (mass/volume)Ordered By: Rhina Street on 09-02-2024 Cholesterol [Mass/Vol] 190 mg/dL <201 [facility] Comment on above: Cholesterol level, D esirable <200 mg/dLBorderline high cholesterol 200-239 mg/dLHigh cholesterol >=240 mg/dLRecommendations of the NCEP Adult Treatment Panel for the following risk-cutoff thresholds for the [place] population. Serum or plasma urea nitroge n measurement (mass/volume)Ordered By: Rhina Street on 09-02-2024 Urea nitrogen [Mass/Vol] 14 mg/dL 4-19 [facility] Sodium levelOrdered By: Shen Street on 09-02-2024 Sodium [Moles/Vol] 140 mmol/L 133-145 [facility] Total proteinOrdered By: Yony Street on 09-02-2024 Protein [Mass/Vol] 6.1 g/dL 5.9-8.4 [facility] Triglycerides measurementOrd ered By: Rhina Street on 09-02-2024 Triglyceride [Mass/Vol] 69 mg/dL <199 [facility] Comment on above: The drugs N-Acetylcy steine and Metamizole may falsely depress this assay. Normal range: <150 mg/dLBorderline High: 150-199 mg/dLHigh: 200-499 mg/dLVery High: >500 mg/dL White blood cell (WBC) count Ordered By: Rhina Street on 09-02-2024 WBC (Bld) [#/Vol] 4.8 10*3/uL 4.4-11.0 [facility] Internal Medicine Office Vis chrissie 06-04-2024 Internal Medicine Office Visit [facility] [address] [place] [address] [place] [address] OFFICE VISIT Date of Service: 06/04/24 MR#: [id number] Acct: [id number] Name: GENET AN Rep #: [id number] : 1980 Provider: Dr. Rhina gonzalez MD Age/Sex: 43/F Location: [facility] [place] Status: Signed Intake Vital Signs 03/11/24 16:31 06/04/24 16:44 Height 5 ft 6 in 5 ft 6 in Weight: 234 lb BMI 37.8 BP 114/80 Blood Pressure Location Lt brachial Position Sitting Respiration 14 Pulse 75 Pulse Source Monitor Temp 97.1 F L Temp Source Temporal Pulse Oximetry (%) 97 Oxygen Delivery Method room air Intake Visit Reasons: 3 M FU Chief Complaint: Follow-up chronic conditions Geography Professor Required: No Is patient in pain?: No Allergies No Known Allergies Allergy (Verified 06/04/24 16:39) Medications ???Medication ???Instructions ???Recorded ???Confirmed ???Type levonorgestrel (Mirena) 1 device intrauterine ONCE 2 06/04/24 History buspirone 10 mg tablet 20 mg (2 x 10 mg) PO BID 3 months 03/11/24 06/04/24 Rx #360 tabs magnesium spray miscellaneous 06/04/24 History trazodone 50 mg tablet 50 mg PO QHS PRN insomnia #30 tabs 06/04/24 06/04/24 Rx PFSH Medical History (Updated 06/04/24 @ 17:[address]ina [address] MD) Insomnia Preventative health care Menstrual irregularity H/O emotional problems Seasonal allergies Surgical History History of History of microdiscectomy Family History Grandmother Cancer Diabetes Myocardial infarction Mother Hypertension Cancer uterus , HER positive breast Father Seizures Hypertension Hyperlipemia Social History Smoking Status: Former smoker alcohol intake: current alcohol intake frequency: a few times a week Alcohol type: beer substance use type: does not use what type of physical activity do you participate in: none HPI HPI Chief Complaint: Follow-up chronic conditions Details: GENET AN, is a 43 F who presents to the office today for follow-up. As her las visit, buspirone was increased due to poorly controlled anxiety. Doing much better. Also continues in therapy. Still reports difficulty with maintaining sleep. Recently started trying topical magnesium which helps her initiate but not maintain sleep. Other chronic conditions are stable. ROS Const Constitutional: No body ache, chills, excessive sweating, fatigue, fever(s), frequent falls, headache(s), snoring, weakness, sleep problems or change in appetite Eyes Eyes: No blurry vision, change in vision, floaters, visual disturbances, eye pain or Light sensitivity ENT ENT: No abnormal hearing, ear or mastoid pain, tinnitus, balance problems, nosebleed/epistaxis , nasal congestion, headache(s), neck pain or sore throat Resp Respiratory: No cough, excessive phlegm production, pain on inspiration, shortness of breath, snoring or wheezing Cardio Cardiology: No chest pain at rest, chest pain with exertion, excessive sweating, shortness of breath, dyspnea on exertion, lightheadedness, orthopnea or palpitations Gastro GI: No abdominal pain, change in bowel habits, constipation, cramping, diarrhea, nausea/dyspepsia or vomiting Genitourinary-Femal e: No burning urination, painful urination, urinary incontinence, urinary frequency, abnormal vaginal bleeding or pelvic pain Musc Musculoskeletal: No abnormal gait, joint pain, back pain, limited range of motion, neck pain or numbness Skin Skin: No dry skin, redness, excessive hair growth, yellowing of the eye, lesions, itchy eyes, rash or wounds Neuro Neurology: No abnormal gait, abnormal hearing, behavioral changes, unsteady gait/balance, weakness, frequent falls, headache(s), memory loss, numbness or visual disturbances Psych Psychiatric: No anxiety, No behavioral changes, No change in appetite, No depression, No memory loss and No Thoughts of harming yourself/Others Endo Endocrine: No cold intolerance, excessive sweating, fatigue, flushing, heat intolerance, increased thirst/drinking or increased hunger Aller/Imm Allergy/Immunologic : No itchy eyes, seasonal allergy symptoms, hives or wheezing Luciano/Lymp Hematologic/Lymphat ic: No easy bleeding, easy bruising, enlarged lymph nodes or other Exam Const General: cooperative, comfortable and no acute distress Orientation: alert, awake and oriented x3 HENMT Head: normal to inspection, normocephalic and atraumatic Ears: hearing grossly normal bilaterally Neck Neck: normal visual inspection, full ROM, no lymphadenopathy and supple Neck mass: No Thyroid: thyroid normal Resp Effort Inspec (more content not included)... Normal [facility] Internal Medicine Office Vis chrissie 03-11-2024 Internal Medicine Office Visit [facility] [address] [place], [place] [address] OFFICE VISIT Date of Service: 03/11/24 MR#: [id number] Acct: [id number] Name: GENET AN Rep #: [id number] : 1980 Provider: Dr. Rhina gonzalez MD Age/Sex: 43/F Location: [facility] Status: Signed Intake Vital Signs 09/13/23 09:37 03/11/24 16:31 Height 5 ft 6 in 5 ft 6 in Weight: 231 lb 4 oz BMI 37.3 BP 112/68 Blood Pressure Location Lt brachial Position Sitting Respiration 16 Pulse 79 Pulse Source Monitor Temp 98.3 F Pulse Oximetry (%) 96 Oxygen Delivery Method room air Intake Visit Reasons: 6 M FU Chief Complaint: 6 M FU Geography Professor Required: No Accompanied by: Self Is patient in pain?: No Allergies No Known Allergies Allergy (Verified 03/11/24 16:26) Medications ???Medication ???Instructions ???Recorded ???Confirmed ???Type levonorgestrel (Mirena) 1 device intrauterine ONCE 07/17/21 03/11/24 History melatonin PO 07/18/23 03/11/24 History buspirone 10 mg tablet 20 mg (2 x 10 mg) PO BID 3 months 03/11/24 03/11/24 Rx #360 tabs PFSH Medical History Preventative health care Menstrual irregularity H/O emotional problems Seasonal allergies Surgical History History of History of microdiscectomy Family History Grandmother Cancer Diabetes Myocardial infarction Mother Hypertension Cancer uterus , HER positive breast Father Seizures Hypertension Hyperlipemia Social History Smoking Status: Former smoker alcohol intake: current alcohol intake frequency: a few times a week Alcohol type: beer substance use type: does not use what type of physical activity do you participate in: none HPI HPI Chief Complaint: 6 M FU Details: GENET AN, is a 43 F who presents to the office today for follow-up. At her last visit, blood pressure was elevated. Blood pressure today is better at 112/68. She states that she has been exercising more consistently lately. Has not really checked it at home since her last visit. History of anxiety currently on buspirone 10 mg twice daily. Is also been in therapy every other week. With the holidays, she has had increased anxiety. This is the first holiday following her divorce. She would like to increase the dose of her medication. ROS Const Constitutional: No body ache, chills, excessive sweating, fatigue, fever(s), frequent falls, headache(s), snoring, weakness or change in appetite Eyes Eyes: No blurry vision, change in vision, bulging eyes, floaters, visual disturbances, eye pain or Light sensitivity ENT ENT: No abnormal hearing, ear or mastoid pain, tinnitus, balance problems, nosebleed/epistaxis , nasal congestion, headache(s), neck pain or sore throat Resp Respiratory: No cough, excessive phlegm production, pain on inspiration, shortness of breath, snoring or wheezing Cardio Cardiology: No chest pain at rest, chest pain with exertion, excessive sweating, dyspnea on exertion, lightheadedness, orthopnea or palpitations Gastro GI: No abdominal pain, change in bowel habits, constipation, cramping, diarrhea, nausea/dyspepsia or vomiting Genitourinary-Femal e: No burning urination, painful urination, urinary incontinence, urinary frequency, suprapubic fullness or side pain Musc Musculoskeletal: No abnormal gait, joint pain, back pain, limited range of motion, loss of height, muscle cramps, muscle weakness, neck pain or numbness Skin Skin: No dry skin, redness, excessive hair growth, yellowing of the eye, lesions, itchy eyes, rash or wounds Neuro Neurology: No abnormal gait, abnormal hearing, behavioral changes, unsteady gait/balance, weakness, frequent falls, headache(s), memory loss, numbness or visual disturbances Psych Psychiatric: No anxiety, No behavioral changes, No change in appetite, No depression, No memory loss and No Thoughts of harming yourself/Others Endo Endocrine: No cold intolerance, excessive sweating, fatigue, flushing, heat intolerance, increased thirst/drinking or increased hunger Aller/Imm Allergy/Immunologic : No itchy eyes, seasonal allergy symptoms, hives or wheezing Luciano/Lymp Hematologic/Lymphat ic: No easy bleeding or easy bruising Exam Const General: cooperative, comfortable and no acute distress Orientation: alert, awake and oriented x3 HENMT Head: normal to inspection, normocephalic and atraumatic Ears: hearing grossly normal bilaterally Neck Neck: normal visual inspection, full ROM, no lymphadenopathy and supple Neck mass: No Thyroid: thyroid normal Resp Effort Inspection: normal respiratory eff (more content not included)... Normal [facility] HCG QUAL UR B/Oon 06-22-2021 status Negative neg - [facility] Quality Check Yes [facility] Patient Summary Documentson 07-24-2017 Patient Summary Documents [facility] 8 ED [facility]-Provider [facility] Pat Eduon 07-23-2017 [facility] Vital Signs Date Time Vital Sign Value Performing Clinician Darcie landrum 10-13-2024 16:06-0400 Body mass index (BMI) [Ratio] 38.74 kg/m2 Melissa Alpine GREETER.MEDICAL FRONT DESK SPECIALIST Work Phone: [facility] 10-13-2024 16:06-0400 Body weight 107.23 kg Melissa Alpine GREETER.MEDICAL FR[employer] DESK SPECIALIST Work Phone: [facility] 10-13-2024 16:06-0400 Diastolic blood pressure 76 mm[Hg] Melissa Nba GREETER.MEDICAL FR[employer] DESK SPECIALIST Work Phone: [facility] 10-13-2024 16:06-0400 Systolic blood pressure 138 mm[Hg] Melissa Nba GREETER.MEDICAL FR[employer] DESK SPECIALIST Work Phone: [facility] 09-02-2024 08:58-0400 Body height 167.[address] MD Work Phone: [facility] 09-02-2024 08:58-0400 Body mass index (BMI) [Ratio] 38 kg/m2 Dr. Rhina Street MD Work Phone: [facility] 09-02-2024 08:58-0400 Body temperature 97.2 [degF] Dr. Rhina Street MD Work Phone: [facility] 09-02-2024 08:58-0400 Body weight 107.[address] MD Work Phone: [facility] 09-02-2024 08:58-0400 Diastolic blood pressure 76 mm[Hg] Dr. Rhina Street MD Work Phone: [facility] 09-02-2024 08:58-0400 Heart rate 87 /min Dr. Rhina Street MD Work Phone: [facility] 09-02-2024 08:58-0400 Respiratory rate 18 /min Dr. Rhina Street MD Work Phone: [facility] 09-02-2024 08:58-0400 SaO2% (BldA) [Mass fraction] 96 % Dr. Rhina Street MD Work Phone: [facility] 09-02-2024 08:58-0400 Systolic blood pressure 128 mm[Hg] Dr. Rhina Street MD Work Phone: [facility] 06-04-2024 16:44-0400 Body mass index (BMI) [Ratio] 37.8 kg/m2 Dr. Rhina Street MD Work Phone: [facility] 06-04-2024 16:44-0400 Body temperature 97.1 [degF] Dr. Rhina Street MD Work Phone: [facility] 06-04-2024 16:44-0400 Body weight 106.[address] MD Work Phone: [facility] 06-04-2024 16:44-0400 Diastolic blood pressure 80 mm[Hg] Dr. Rhina Street MD Work Phone: [facility] 06-04-2024 16:44-0400 Heart rate 75 /min Dr. Rhina Street MD Work Phone: [facility] 06-04-2024 16:44-0400 Respiratory rate 14 /min Dr. Rhina Street MD Work Phone: [facility] 06-04-2024 16:44-0400 SaO2% (BldA) [Mass fraction] 97 % Dr. Rhina Street MD Work Phone: [facility] 06-04-2024 16:44-0400 Systolic blood pressure 114 mm[Hg] Dr. Rhina Street MD Work Phone: [facility] 04-10-2023 15:22-0500 Body height 167.[address] Work Phone: [facility] 04-10-2023 15:22-0500 Body mass index (BMI) [Ratio] 34.5 kg/m2 Dr. Rhina Street Work Phone: [facility] 04-10-2023 15:22-0500 Body temperature 97.7 [degF] Dr. Rhina Street Work Phone: [facility] 04-10-2023 15:22-0500 Body weight 97.[address] Work Phone: [facility] 04-10-2023 15:22-0500 Diastolic blood pressure 94 mm[Hg] Dr. Rhina tSreet Work Phone: [facility] 04-10-2023 15:22-0500 Heart rate 84 /min Dr. Rhina Street Work Phone: [facility] 04-10-2023 15:22-0500 Respiratory rate 14 /min Dr. Rhina Street Work Phone: [facility] 04-10-2023 15:22-0500 SaO2% (BldA) [Mass fraction] 98 % Dr. Rhina Street Work Phone: [facility] 04-10-2023 15:22-0500 Systolic blood pressure 134 mm[Hg] Dr. Rhina Street Work Phone: [facility] 02-21-2023 15:26-0500 Body mass index (BMI) [Ratio] 34.2 kg/m2 Dr. Rhina Street Work Phone: [facility] 02-21-2023 15:26-0500 Body temperature 99.9 [degF] Dr. Rhina Street Work Phone: [facility] 02-21-2023 15:26-0500 Body weight 96.[address] Work Phone: [facility] 02-21-2023 15:26-0500 Diastolic blood pressure 90 mm[Hg] Dr. Rhina Street Work Phone: [facility] 02-21-2023 15:26-0500 Heart rate 84 /min Dr. Rhina Street Work Phone: [facility] 02-21-2023 15:26-0500 Respiratory rate 16 /min Dr. Rhina Street Work Phone: [facility] 02-21-2023 15:26-0500 SaO2% (BldA) [Mass fraction] 98 % Dr. Rhina Street Work Phone: [facility] 02-21-2023 15:26-0500 Systolic blood pressure 142 mm[Hg] Dr. Rhina Street Work Phone: [facility] 12-28-2021 10:01-0400 Body height 168 cm Melissa Alpine GREETER.MEDICAL FR[employer] DESK SPECIALIST Work Phone: [facility] 12-28-2021 10:01-0400 Body weight 111.13 kg Melissa Alpine GREETER.MEDICAL FR[employer] DESK SPECIALIST Work Phone: [facility] 12-28-2021 10:01-0400 Diastolic blood pressure 80 mm[Hg] Melissa Alpine GREETER.MEDICAL FRONT DESK SPECIALIST Work Phone: [facility] 12-28-2021 10:01-0400 Systolic blood pressure 124 mm[Hg] Melissa Nba GREETER.MEDICAL FRONT DESK SPECIALIST Work Phone: [facility] 07-31-2021 12:54-0400 Body weight 112.95 kg Melissa Alpine GREETER.MEDICAL FR[employer] DESK SPECIALIST Work Phone: [facility] 07-31-2021 12:54-0400 Diastolic blood pressure 74 mm[Hg] Melissa Alpine GREETER.MEDICAL FR[employer] DESK SPECIALIST Work Phone: [facility] 07-31-2021 12:54-0400 Systolic blood pressure 116 mm[Hg] Melissa Nba GREETER.MEDICAL FRONT DESK SPECIALIST Work Phone: [facility] 06-22-2021 10:03-0400 Body weight 112.95 kg Melissa Alpine GREETER.MEDICAL FRONT DESK SPECIALIST Work Phone: [facility] 06-22-2021 10:03-0400 Diastolic blood pressure 94 mm[Hg] Melissa Alpine GREETER.MEDICAL FR[employer] DESK SPECIALIST Work Phone: [facility] 06-22-2021 10:03-0400 Systolic blood pressure 130 mm[Hg] Melissa Nba GREETER.MEDICAL FRONT DESK SPECIALIST Work Phone: [facility] 06-12-2021 12:39-0400 Body weight 114.31 kg Melissa Alpine GREETER.MEDICAL FRONT DESK SPECIALIST Work Phone: [facility] 06-12-2021 12:39-0400 Diastolic blood pressure 86 mm[Hg] Melissa Nba GREETER.MEDICAL FRONT DESK SPECIALIST Work Phone: [facility] 06-12-2021 12:39-0400 Systolic blood pressure 124 mm[Hg] Melissa Mcnallytania HALEY.MEDICAL FRONT DESK SPECIALIST Work Phone: [facility] Encounters Encounter Date Encounter Type Care Provider Facility Start: 10-26-[address] [facility] Start: 10-13-2024 End: 10-13-2024 Patient encounter procedure Melissa Mcnallycalf GREETER.MEDICAL FRONT DESK SPECIALIST Work Phone: OB/Gynecology Comment on above: Encounter for gyneco logical examination (general) (routine) without abnormal findings (Primary Dx); Encounter for screening mammogram for breast cancer; Screen for STD (sexually transmitted disease) Start: 10-13-2024 End: 10-13-2024 Patient encounter status Melissa Nbatania ESCALERAN.MEDICAL FRONT DESK SPECIALIST Work Phone: [facility] Start: 10-13-2024 End: 10-13-2024 ambulatory MELISSA MCNALLYCALF Facility:[facility] Start: 10-13-2024 Encounter for gynecological examination (general) (routine) without abnormal findings MELISSA NBA [facility] Start: 09-09-2024 Encounter for genera l adult medical examination without abnormal findings Rhina Street [facility] Start: 09-02-2024 End: 09-02-[address] Rhina Street MD -[facility] Work Phone: Start: 09-02-2024 End: 09-02-[address] Rhina [address] MD [facility] Start: 09-02-2024 End: 09-02-[address] MD Work Phone: [facility] Work Phone: Start: 09-02-2024 End: 09-02-[address] Facility:[facility] Start: 06-04-2024 End: 06-04-[address] Rhina Street MD -[facility] Work Phone: Start: 06-04-2024 End: 06-04-[address] Facility:[facility] Start: 03-11-2024 End: 03-11-[address] Facility:[facility] Start: 05-13-2023 End: 05-13-[address] Work Phone: [facility] Work Phone: Start: 05-13-2023 End: 05-13-[address] Work Phone: [facility] Work Phone: Start: 04-10-2023 End: 04-10-[address] Work Phone: [facility] Work Phone: Start: 02-21-2023 End: 02-21-[address] Work Phone: [facility] Work Phone: Start: 12-28-2021 End: 12-28-2021 Patient encounter status Melissa Arango APRN.MEDICAL FRONT DESK SPECIALIST Work Phone: OB/Gynecology Start: 12-28-2021 End: 12-28-2021 ambulatory [facility] Work Phone: Start: 12-28-2021 End: 12-28-2021 Patient encounter procedure Melissa Arango APRNAmaliaMEDICAL FRONT DESK SPECIALIST Work Phone: OB/Gynecology Comment on above: Encounter for gyneco logical examination (general) (routine) without abnormal findings (Primary Dx); Screening for cervical cancer; Encounter for screening mammogram for breast cancer; Encounter for screening for human papillomavirus (HPV) Start: 07-31-2021 End: 07-31-2021 Patient encounter procedure Melissa Arango APRN.MEDICAL FRONT DESK SPECIALIST Work Phone: OB/Gynecology Comment on above: Surveillance of intr auterine contraceptive device (Primary Dx) Start: 07-17-2021 Patient encounter status [facility] Start: 06-22-2021 End: 06-22-2021 Patient encounter procedure Melissa Arango APRN.VELASQUEZ Work Phone: OB/Gynecology Comment on above: Encounter for IUD in sertion (Primary Dx) Start: 06-13-2021 Telephone encounter Melissa cuello GREETER.MEDICAL FRONT DESK SPECIALIST Work Phone: OB/Gynecology Comment on above: Results Start: 06-12-2021 End: 06-12-2021 ambulatory Namrata Harvey MD Work Phone: OB/Gynecology Comment on above: DUB Start: 06-12-2021 End: 06-12-2021 Patient encounter procedure Namrata Harvey MD Work Phone: [facility] Start: 06-12-2021 End: 06-12-2021 Patient encounter procedure Melissa Arango GREETER.MEDICAL FRONT DESK SPECIALIST Work Phone: OB/Gynecology Comment on above: Abnormal uterine ble eding (AUB) (Primary Dx) Start: 07-23-2017 End: 07-24-2017 Emergency department patient visit SCARLET AlessiaAmalia SANTOS Facility:[facility] Start: 06-16-2015 End: 10-20-2015 Patient requested procedure Melissa Arango APRN.VELASQUEZ Work Phone: [facility] Procedures Date Procedure Procedure Detail Performing Clinician Start: 05-13-[address] Work Phone: Start: 12-28-2021 Screening mammography Start: 06-22-2021 Urine test visual color cmprsn meths Melissa Arango GREETER.MEDICAL FRONT DESK SPECIALIST Work Phone: Start: 10-13-2020 Mammography Melissa cuello GREETER.MEDICAL FRONT DESK SPECIALIST Work Phone: Start: 06-16-2015 End: 08-16-2016 H/O: section History of section Melissa Arango APRN.MEDICAL FRONT DESK SPECIALIST Work Phone: Plan of Treatment Date Care Activity Detail Author Start: 12-28-2026 Screening for malign ant neoplasm of cervix Cervical Cancer Screening [facility] Start: 10-14-2025 End: 10-14-2025 Patient encounter procedure 10/14/2025 4:00 PM EDT Office Visit OB/Gynecology [address] [place] [address] Melissa Arango APRN.MEDICAL FRONT DESK SPECIALIST [address] [place] [address] Annual OB/Gynecology Comment on above: Annual Start: 11-23-2024 Influenza vaccination Influenza Vacc ine (#1) [facility] Start: 09-02-2024 Patient referral [facility] Work Phone: Start: 09-02-2024 CBC W Auto Different ial panel - Blood [facility] Start: 09-02-2024 Comprehensive metabo lic 2000 panel - Serum or Plasma [facility] Start: 09-02-2024 Lipid 1996 panel - S [place] or Plasma [facility] Start: 12-28-2022 Screening for malign ant neoplasm of breast Mammogram Screening [facility] Start: 07-21-2022 Urine microalbumin profile [facility] Start: 11-23-2021 Influenza vaccination [facility] Start: 10-13-2021 Mammography MAMMOGRAM [facility] Start: 09-13-2021 HPV TESTING HPV TESTING [facility] Start: 09-13-2021 PAP TESTING PAP TESTING [facility] Start: 03-25-2021 DEPRESSION ASSESSMENT DEPRESSION ASS ESSMENT [facility] Start: 11-23-2020 Influenza vaccination INFLUENZA (#1) [facility] Start: 11-13-1998 Hepatitis B Vaccine (1 of 3 - 19+ 3-dose series) Hepatitis B Vaccine (1 of 3 - 19+ 3-dose series) [facility] Start: 11-13-1997 Anxiety Screening Anxiety Screening [facility] Start: 11-13-1997 Depression Screening Depression Scre ening [facility] Start: 11-13-1997 HEPATITIS C SCREENING HEPATITIS C [facility] Start: 11-13-1997 Hepatitis C screening Hepatitis C [facility] Start: 1991 Adult depression screening assessment DEPRESSION SCREENING [facility] Start: 11-13-1984 COVID-19 VACCINE (#1) COVID-19 VACCI NE (#1) [facility] Start: 11-13-1984 COVID-19 VACCINE (1) COVID-19 VACCIN E (1) [facility] Start: 05-16-1980 COVID-19 VACCINE (#1) COVID-19 VACCI NE (#1) [facility] Start: 1979 HEPATITIS B (1 of 3 - 3-dose series) HEPATITIS B (1 of 3 - 3-dose series) [facility] Alanine aminotransfe rase [Enzymatic activity/volume] in Serum or Plasma [facility] Albumin [Mass/volume ] in Serum or Plasma [facility] Alkaline phosphatase [Enzymatic activity/volume] in Serum or Plasma [facility] Anion gap in Serum o r Plasma [facility] Bilirubin, total measurement [facility] BUN/Creatinine ratio [facility] Calcium [Mass/volume ] in Serum or Plasma [facility] Carbon dioxide, tota l [Moles/volume] in Central venous blood [facility] Chlamydia trachomatis+Neisseria gonorrhoeae DNA [Presence] in Unspecified specimen by ELOISA with probe detection GONORRHEA/CHLAMYDIA NAAT Lab Routine Screen for STD (sexually transmitted disease) Ordered: 10/13/2024 [facility] Work Phone: Comment on above: Ordered: 10/13/2024 Cholesterol [Mass/vo lume] in Serum or Plasma [facility] Cholesterol in HDL [Mass/volume] in Serum or Plasma [facility] Creatinine [Mass/vol ume] in Serum or Plasma [facility] Erythrocyte mean corpuscular volume determination [facility] Glucose [Mass/volume ] in Serum or Plasma [facility] Hematocrit [Volume Fraction] of Blood [facility] Hemoglobin [Mass/vol ume] in Blood [facility] Insertion intrauteri ne device iud INSERT INTRAUTERINE DEVICE Procedures Routine Adenomyosis Ordered: 06/13/2021 [facility] Work Phone: Comment on above: Ordered: 06/13/2021 Insertion intrauteri ne device iud INSERT INTRAUTERINE DEVICE Procedures Routine Encounter for IUD insertion Ordered: 06/22/2021 [facility] Work Phone: Comment on above: Ordered: 06/22/2021 Leukocytes [#/volume ] in Blood [facility] Low density lipoprot ein cholesterol measurement [facility] Mean corpuscular hemoglobin concentration determination [facility] Mean corpuscular hemoglobin determination [facility] Measurement of renal function [facility] MG Breast - bilatera l Screening [facility] Neutrophil count [facility] Neutrophil percent differential count [facility] PAP FLUID CERVICAL SCREENING PAP FLUID CERVICAL SCREENING Lab Routine Screening for cervical cancer Encounter for screening for human papillomavirus (HPV) Ordered: 12/28/2021 [facility] Work Phone: Comment on above: Ordered: 12/28/2021 Patient referral [facility] Work Phone: PELVIC US I PELVIC US I An c Imaging Routine Abnormal uterine bleeding (AUB) Ordered: 06/12/2021 [facility] Work Phone: Comment on above: Ordered: 06/12/2021 Platelets [#/volume] in Blood [facility] Potassium measurement [facility] Red blood cell count [facility] Red cell distributio n width determination [facility] Serum chloride measurement [facility] Sodium measurement [facility] Total cholesterol:HD L ratio measurement [facility] Total protein measurement [facility] TRICHOMONAS VAGINALI S NAAT TRICHOMONAS VAGINALIS NAAT Lab Routine Screen for STD (sexually transmitted disease) Ordered: 10/13/2024 [facility] Comment on above: Ordered: 10/13/2024 Triglycerides measurement [facility] Urea nitrogen [Mass/volume] in Serum or Plasma [facility] VLDL cholesterol measurement [facility] Immunizations Immunization Date Immunization Notes Care Provider Frank roger 06-04-2016 RHO(D) immune globul in- IV or IM Melissa Arango GREETER.MEDICAL FRONT DESK SPECIALIST Work Phone: [facility] Work Phone: 01-11-2016 Influenza virus vaccine [facility] 01-11-2016 influenza virus vaccine, unspecified formulation Melissa Garrettf GREETER.MEDICAL FRONT DESK SPECIALIST Work Phone: [facility] 01-02-2016 influenza, seasonal, injectable Melissa Alpine GREETER.MEDICAL FRONT DESK SPECIALIST Work Phone: [facility] 07-21-2012 tetanus toxoid, redu tonie diphtheria toxoid, and acellular pertussis vaccine, adsorbed Melissa Alpine GREETER.MEDICAL FRONT DESK SPECIALIST Work Phone: [facility] Work Phone: 06-16-2012 RHO(D) immune globul in- IV or IM Melissa Alpine GREETER.MEDICAL FRONT DESK SPECIALIST Work Phone: [facility] Work Phone: 02-15-2012 influenza virus vaccine, unspecified formulation Melissa Nba GREETER.[facility] Work Phone: [facility] 02-15-2012 RHO(D) immune globul in- IV or IM Melissa Alpine GREETER.MEDICAL FRONT DESK SPECIALIST Work Phone: [facility] Payers Date Payer Category Payer Self-pay [id number] 2018 Private Health Insurance MMO SUP [employer] PPO [id number] 2018 Unknown MMO MMO [employer] [id number] 2018-Present [phone] [place], [place] [address] PPO [id number] 2018 Unknown MMO MMO [employer] [id number] 2018-Present [phone] [address] [place] [address] PPO [id number] 2015 Unknown [id number] Unknown [id number] Unknown [id number] Unknown [id number] Unknown [id number] Unknown [id number] Social History Date Type Detail Facility Start: 12-28-2021 End: 04-05-2023 Tobacco smoking status NHIS Never smoked tobacco [facility] Start: 06-12-2021 End: 10-13-2024 Alcohol intake Current drinker of alcohol (finding) [facility] Start: 01-10-2012 History SDOH Alcohol Comment Occasionally,NOT WHILE [facility] Start: 1980 Sex Assigned At Not on file [facility] Start: 06-02-2021 End: 12-28-2021 Exposure to SARS-CoV-2 (event) Not sure [facility] Start: 12-28-2021 End: 04-05-2023 Tobacco use and exposure Smokeless tobacco non-user [facility] Start: 07-17-2021 End: 04-10-2023 Tobacco smoking status COIS Unknown if ever smoked [facility] Start: 1980 Sex Assigned At Female [facility] Start: 04-10-2023 Tobacco smoking stat us COIS Ex-smoker (finding) [facility] History of tobacco use Passive smoker [facility] Start: 04-05-2023 End: 10-13-2024 History of Social function [facility] Start: 04-05-2023 End: 10-13-2024 Tobacco use panel [facility] National Score (1-100), lower number is lower risk 43 [facility] Functional Status Date Assessment Result Facility 10-18-2014 Are you deaf, or do you have serious difficulty hearing No 10/18/2014 9:23 AM EDT Brynn Webber MA No [facility] 10-18-2014 Are you blind, or do you have serious difficulty seeing, even when wearing glasses No 10/18/2014 9:23 AM EDT Brynn Webber MA [facility] 10-18-2014 Do you have serious difficulty walking or climbing stairs No 10/18/2014 9:23 AM EDT Brynn Webber MA [facility] 10-18-2014 Do you have difficul ty dressing or bathing No 10/18/2014 9:23 AM EDT Brynn Webber MA No [facility] 10-18-2014 Because of a physica l, mental, or emotional condition, do you have difficulty doing errands alone such as visiting a physician's office or shopping No 10/18/2014 9:23 AM EDT Brynn Webber MA [facility] Mental Status Date Assessment Result Facility 10-18-2014 Because of a physica l, mental, or emotional condition, do you have serious difficulty concentrating, remembering, or making decisions No 10/18/2014 9:23 AM EDT Brynn Webber MA [facility] Clinical Notes 01-02-2016 to 10-13-2024 Melissa Arango APRN.CNP - 10/13/2024 3:56 PM EDT Note Date & Type Note Facility 10-13-2024 Note HNO ID: [id number] Author: MELISSA ARANGO APRN.MEDICAL FRONT DESK SPECIALIST Service: ? Author Type: Nurse Practitioner Type: Progress Notes Filed: 10/13/2024 16:27 Note Text: Patient declined customer resource specialistAmalia De León is a 43 year old who presents for an annual gynecologic exam without complaints. Menses: no menses - Mirena IUD. Random spotting Contraception: IUD and tubal sterilization HPV vaccine: No Last Pap: 01/04/2022 normal HPV: 01/02/2022 negative History of abnormal pap: No Last mammogram: [address] [facility] Patient concerns for STD exposure: No. OB History Gravida3 Para2 Term2 Preterm0 AB1 Living2 SAB1 IAB0 Ectopic0 Multiple0 Live Births2 Ore Mixer History LMP: 12/08/2021 (Exact Date), IUD Age at Menarche: Age at First : Age at Menopause: Ore Mixer History Comments: Sexual Activity: Yes; Male Contraception: Tubal Ligation, I.U.D. PAST MEDICAL HISTORY Diagnosis Date Abnormal Pap [...] other (migraine) Mother other (endometrial cancer) Mother Breast Cancer Mother Uterine Cancer Mother Lipids Father High Cholesterol Heart disease Father Cancer Maternal Grandmother Diabetes Maternal Grandmother Cancer Maternal Grandfather Cancer Paternal Grandmother Cancer Paternal Grandfather SOCIAL HISTORY Social History Tobacco Use Smoking status: Never Passive exposure: Current Smokeless tobacco: Never Vaping Use Vaping status: Never Used Substance Use Topics Alcohol use: Yes Comment: Occasionally,NOT WHILE Drug use: No REVIEW OF SYSTEMS Abdomen: No abdominal pain, nausea, vomiting, diarrhea, or constipation. No bloating, early satiety, indigestion, or increased flatulence. Bladder: No dysuria, gross hematuria, urinary frequency, urinary urgency, or incontinence. Breast: No breast lumps, nipple d/c, overlying skin changes, redness or skin retraction. Allergies and current medication updated:Yes SENSITIVE EXAM: The sensitive examination was discussed with the Patient or Patient's Authorized Supervisor Steffen House. As applicable, any other physician, advance practice provider, medical student, or other health professional student that will be observing or involved in the sensitive examination for educational or training purposes was discussed with the Patient or Authorized Supervisor Steffen House. The Patient or Authorized Supervisor Steffen House has agreed to proceed with the sensitive examination. (Sensitive examination includes inspection and/or palpation of the breasts, pelvis, prostate and anorectal regions). EXAM: BP 138/76 Wt 236 lb 6.4 oz (107.2kg) LMP 12/08/2021 GENERAL: pleasant, female in no apparent distress HEENT: Normocephalic, atraumatic, mucus membranes moist, and no lesions DERMATOLOGY: Normal, without lesions, non-icteric, and non-hirsute BREAST: soft, non-tender, symmetric, no dominant mass, normal nipple-areolar complex, no lymphadenopathy, and no nipple discharge CHEST: Normal inspiratory effort ABDOMEN: soft, non-tender, and no masses PELVIC: external genitalia normal, normal Bartholin's glands, urethra, [place]'s glands, no vulvar lesions, no cervical lesions, good vaginal support, physiologic discharge present, normal appearing perineal body and perianal region, IUD strings NOT visible BIMANUAL: uterus normal size, shape and consistency, no adnexal masses, and non-tender RECTOVAGINAL: deferred. NEURO: alert and oriented x3,exam grossly non-focal EXTREMITIES: normal ASSESSMENT/PLAN: 1) Health maintenance: Pap/HPV up to date. Mammogram ordered. @ [facility] Nutrition, exercise and routine health maintenance exams reviewed. Calcium/Vitamin D supplementation information provided. Colon cancer screening: start at age 45 2) Contraception: IUD and tubal sterilization. Contraceptive options reviewed and information provided. 3) STD screening: Accepted STI check for Gonorrhea and Chlamydia. 4) Follow up one year or sooner as needed Melissa Arango APRN.[facility] 10-13-2024 History of Present illness Narrative Patient declined customer resource specialist. Genet is a 43 year old who presents for an annual gynecologic exam without complaints. Menses: no menses - Mirena IUD. Random spotting Contraception: IUD and tubal sterilization HPV vaccine: No Last Pap: 01/04/2022 normal HPV: 01/02/2022 negative History of abnormal pap: No Last mammogram: [address] [facility] Patient concerns for STD exposure: No. OB History Gravida3 Para2 Term2 Preterm0 AB1 Living2 SAB1 IAB0 Ectopic0 Multiple0 Live Births2 Ore Mixer History LMP: 12/08/2021 (Exact Date), IUD Age at Menarche: Age at First : Age at Menopause: Ore Mixer History Comments: Sexual Activity: Yes; Male Contraception: Tubal Ligation, I.U.D. PAST MEDICAL HISTORY Diagnosis Date Abnormal Pap [...] other (migraine) Mother other (endometrial cancer) Mother Breast Cancer Mother Uterine Cancer Mother Lipids Father High Cholesterol Heart disease Father Cancer Maternal Grandmother Diabetes Maternal Grandmother Cancer Maternal Grandfather Cancer Paternal Grandmother Cancer Paternal Grandfather SOCIAL HISTORY Social History Tobacco Use Smoking status: Never Passive exposure: Current Smokeless tobacco: Never Vaping Use Vaping status: Never Used Substance Use Topics Alcohol use: Yes Comment: Occasionally,NOT WHILE Drug use: No REVIEW OF SYSTEMS Abdomen: No abdominal pain, nausea, vomiting, diarrhea, or constipation. No bloating, early satiety, indigestion, or increased flatulence. Bladder: No dysuria, gross hematuria, urinary frequency, urinary urgency, or incontinence. Breast: No breast lumps, nipple d/c, overlying skin changes, redness or skin retraction. Allergies and current medication updated:Yes SENSITIVE EXAM: The sensitive examination was discussed with the Patient or Patient's Authorized Supervisor Steffen House. As applicable, any other physician, advance practice provider, medical student, or other health professional student that will be observing or involved in the sensitive examination for educational or training purposes was discussed with the Patient or Authorized Supervisor Steffen House. The Patient or Authorized Supervisor Steffen House has agreed to proceed with the sensitive examination. (Sensitive examination includes inspection and/or palpation of the breasts, pelvis, prostate and anorectal regions). EXAM: BP 138/76 Wt 236 lb 6.4 oz (107.2kg) LMP 12/08/2021 GENERAL: pleasant, female in no apparent distress HEENT: Normocephalic, atraumatic, mucus membranes moist, and no lesions DERMATOLOGY: Normal, without lesions, non-icteric, and non-hirsute BREAST: soft, non-tender, symmetric, no dominant mass, normal nipple-areolar complex, no lymphadenopathy, and no nipple discharge CHEST: Normal inspiratory effort ABDOMEN: soft, non-tender, and no masses PELVIC: external genitalia normal, normal Bartholin's glands, urethra, [place]'s glands, no vulvar lesions, no cervical lesions, good vaginal support, physiologic discharge present, normal appearing perineal body and perianal region, IUD strings NOT visible BIMANUAL: uterus normal size, shape and consistency, no adnexal masses, and non-tender RECTOVAGINAL: deferred. NEURO: alert and oriented x3,exam grossly non-focal EXTREMITIES: normal ASSESSMENT/PLAN: 1) Health maintenance: Pap/HPV up to date. Mammogram ordered. @ [facility] Nutrition, exercise and routine health maintenance exams reviewed. Calcium/Vitamin D supplementation information provided. Colon cancer screening: start at age 45 2) Contraception: IUD and tubal sterilization. Contraceptive options reviewed and information provided. 3) STD screening: Accepted STI check for Gonorrhea and Chlamydia. 4) Follow up one year or sooner as needed Melissa Arango APRN.MEDICAL FRONT DESK SPECIALIST documented in this encounter [facility] 09-02-2024 Progress note [facility] 09-02-2024 Progress note Note Date/Time September 02, 2024 9:30am [facility] [address] [place] [address] [place] [address] OFFICE VISIT Date of Service: 09/02/24 MR#: [id number] Acct: [id number] Name: GENET AN Rep #: [id number] : 1980 Provider: Dr. 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 MD) Colon cancer screening Insomnia Preventative health care Menstrual irregularity H/O emotional problems Seasonal allergies Surgical History History of History of microdiscectomy Family History Grandmother Cancer Diabetes Myocardial infarction Mother Hypertension Cancer uterus , HER positive breast Father Seizures Hypertension Hyperlipemia Social History Smoking Status: Former smoker alcohol intake: current alcohol intake frequency: a few times a week Alcohol type: beer substance use type: does not use what type of physical activity do you participate in: none HPI HPI Chief Complaint: Preventative Details: GENET AN, is a 43 F who presents to the office today yearly/preventative. No acute concerns at this time. No significant personal or family history changes since her last visit. Was started on trazodone at her last visit for insomnia, she states that she takes it as needed and finds it helpful. Has not really checked her blood pressure lately because it had been good on recent checks. No tobacco or alcohol abuse. Has not had a colon cancer screening, no family history of colon cancer. Last visit with dermatology was a few years ago. Follows up with [facility] at the [facility] [place]. ROS Const Constitutional: No body ache, excessive sweating, fatigue, fever(s), frequent falls, headache(s), snoring, weakness, weight change, sleep problems or change in appetite Eyes Eyes: No blurry vision, change in vision, bulging eyes, floaters, eye pain or Light sensitivity ENT ENT: No abnormal hearing, ear or mastoid pain, tinnitus, balance problems, nosebleed/epistaxis, nasal congestion, headache(s), neck pain or sore throat Resp Respiratory: No cough, excessive phlegm production, pain on inspiration, shortness of breath, snoring or wheezing Cardio Cardiology: No chest pain at rest, chest pain with exertion, excessive sweating,shortness of breath, dyspnea on exertion, lightheadedness, orthopnea or palpitations Gastro GI: No abdominal pain, change in bowel habits, constipation, cramping, diarrhea,nausea/dyspepsia or vomiting Genitourinary-Female: No burning urination, painful urination, urinary incontinence, urinary frequency, blood in urine, suprapubic fullness, side pain,abnormal periods or pelvic pain Musc Musculoskeletal: No abnormal gait, joint pain, back pain, limited range of motion, neck pain, numbness, stiffness, tingling or Arthritis Skin Skin: No dry skin, redness, excessive hair growth, yellowing of the eye, lesions, itchy eyes, rash or wounds Neuro Neurology: No abnormal gait, abnormal hearing, abnormal speech, dizziness, weakness, frequent falls, headache(s), memory loss, numbness or tingling Psych Psychiatric: No anxiety, No change in appetite, No depression, No memory loss and No Thoughts of harming yourself/Others Endo Endocrine: No cold intolerance, excessive sweating, fatigue, flushing, heat intolerance, increased thirst/drinking, increased hunger or weight change Aller/Imm Allergy/Immunologic: No itchy eyes, seasonal allergy symptoms, hives or wheezing Luciano/Lymp Hematologic/Lymphatic: No easy bleeding, easy bruising or enlarged lymph nodes Exam Const General: cooperative, comfortable and no acute distress Orientation: alert, awake and oriented x3 [facility] Head: normal to inspection, normocephalic and atraumatic Ears: hearing grossly normal bilaterally Neck Neck: normal visual inspection, full ROM, no lymphadenopathy and supple Neck mass: No Thyroid: thyroid normal Resp Effort & Inspection: normal respiratory effort and able to speak in complete sentences Auscultation: Bilateral: Clear to Auscultation Cardio Rate: regular rate Rhythm: regular rhythm Heart Sounds: S1 normal and S2 normal GI Palpation: soft (Nontender, no palpable organomegaly) Neuro General: patient alert, patient awake, patient oriented x3, moves all extremities and CN's II-XI intact bilaterally Extrem General: no clubbing, cyanosis or edema Psych Appearance: grossly normal Mental Status: mental status grossly normal Mood: congruent mood Affect: normal affect Coding Level of Care Code Off vis,est,prev 40-64yrs Diagnoses Preventative health care Z00.00 Insomnia G47.00 Elevated blood pressure reading R03.0 Assessment and Plan Assessment and Plan (1) Preventative health care: Status: Acute (2) Insomnia: Status: Chronic (3) Elevated blood pressure reading: Status: Acute Orders: Orders Comprehensive Metabolic Profil Today Z00.00 - Encounter for general adult medical examination without abnormal findings CBC W/Diff, Automated Today Z00.00 - Encounter for general adult medical examination without abnormal findings Lipid Profile Today Z00.00 - Encounter for general adult medical examination without abnormal findings SCRN MAMM (CAD)W/JOSE BILAT Today Referrals General Surgery Z12.11 - Encounter for screening for malignant neoplasm of colon Dermatology Z00.00 - Encounter for general adult medical examination without abnormal findings Medications: Refilled trazodone 50 mg PO QHS PRN 90 tabs 1RF insomnia buspirone 20 mg (2 x 10 mg) PO BID 3 months 360 tabs 1RF Plan No acute concerns at this time. Here for her yearly visit. No concerns noted on exam. Blood pressure monitoring discussed, lifestyle and dietary modifications also discussed. Mammogram due, ordered. Referred to general surgery for colon cancer screening. Refer to dermatology for skin cancer screening. Follows up with [facility] at the [facility] [place] and has an appointment in September. Continue trazodone as needed for insomnia. Continue other chronic management. Follow-up in 6 months for routine and in a year for preventative. This note was generated with [employer] dictation software. It may contain incorrectwords, spelling, and punctuation that were not noted in checking the note beforesigning. 09/02/24 6230 <Electronically signed by Rhina velazquez MD> Date _ Rhina Street MD Cosigner Signature: Date (if applicable) CC: ~ [facility] Work Phone: [phone]) [phone] Evaluation note* Diagnosis Onset Date Resolution Status Admit Date Anxiety and depression chronic [facility] 2024 4:30pm Insomnia chronic June 04 4:30pm Elevated blood pressure reading acut e September 02, 2024 8:54am Preventative health care acute September 02, 2024 8:54am Insomnia chronic September 02 8:54am [facility] Work Phone: [phone]) 405-504310-06-2022 History of Present illness Narrative* Melissa Arango APRN.MEDICAL FRONT DESK SPECIALIST - 12/28/2021 9:55 AM EDT Genet is a 41 year old who presents for an annual gynecologic exam without complaints. Menses: cycles every 25-30 days and 7 days of flow. Light flow Contraception: IUD and tubal sterilization HPV vaccine: No Last Pap: 09/24/2016 normal HPV: 09/18/2016 negative History of abnormal pap: No Last mammogram: 2021 done at [facility] Sexually active: Yes Patient concerns for STD exposure: No. Pain with intercourse: No Postcoital bleeding: No OB History T2 L2 SAB1 IAB0 Ectopic0 Multiple0 Live Births2 Ore Mixer History LMP: 05/16/2021 (Exact Date), IUD Age at Menarche: Age at First : Age at Menopause: Ore Mixer History Comments: Sexual Activity: Yes; Male Contraception: [...] external genitalia normal, normal Bartholin's glands, urethra, [place]'s glands, no vulvar lesions, no cervical lesions, good vaginal support, physiologic discharge present, normal appearing perineal body and perianal region, IUD string not seen BIMANUAL: uterus normal size, shape and consistency, no adnexal masses, and non-tender RECTOVAGINAL: deferred. NEURO: alert and oriented x3,exam grossly non-focal EXTREMITIES: normal ASSESSMENT/PLAN: 1) Health maintenance: Pap done with HPV. Mammogram up to date .Done at [facility] Nutrition, exercise and routine health maintenance exams reviewed. 2) Contraception: IUD and tubal sterilization. Contraceptive options reviewed and information provided. 3) STD screening: Declined STD check. 4) Follow up one year or sooner as needed Melissa Arango APRN.CNP [facility] History of Present illness Narrative* Melisas Arango APRN.CNP - 07/31/2021 12:51 PM EDT Genet An presents today for IUD check. She had [...] which included preparing to see the patient, [id number] patient care, completing clinical documentation, obtaining and/or reviewing separately obtained history, performing a medically appropriate examination and counseling and educating the patient/family/caregiver. documented in this encounter[facility] Instructions* Patient Instructions* Melany Raymond MA - 06/22/2021 9:55 AM [...] please contact the office. documented in this encounterMer[facility] History of Present illness Narrative* Melissa Arango APRN.CNP - 06/22/2021 9:54 AM EDT Genet presents today for IUD insertion for [...] IUD source: office provided IUD lot #: [id number] Exp date: 06/2023 UNIVERSAL PROTOCOL / SAFETY [...] without difficulty and the string was cut to2cm from the external os of the cervix. Patient tolerated procedure well. PLAN: Patient was advised to observe for signs and symptoms of infection including but not limited to fever, malodorous vaginal discharge and/or pain. The patient was told to check the string monthlyfor accurate placement. Bleeding expectations were reviewed. Follow up in one month. Melissa Arango APRN.CNP documented in this encounter[facility]22 Miscellaneous Notes* Telephone Encounter - Zeenat Hunter RN - 06/13/2021 2:28 PM EDT Patient called and appointment scheduled. Zeenat Hunter RN * Telephone Encounter - Melissa Arango APRN.CNP - 06/13/2021 2:17 PM EDT Pt would like to proceed with Mirena IUD for adenomyosis. cytotec explain and sent to the pharmacy. Please contact pt to schedule appt. Melissa Arango APRN.CNP * Telephone Encounter - Melissa Arango APRN.CNP - 06/13/2021 12:49 PM EDT I left a VM for the pt to call me back to discuss US results. Melissa Arango APRN.CNP documented in this encounter[facility] History of Present illness Narrative* Melissa Arango APRN.CNP - 06/12/2021 12:39 PM EDT Genet An is a 40 year old female who presents for problem visit AUB for 3 month(s). HPI: started with a change in the cycle length and days of flow she is having spotting on most days. Cycles have been anywhere from 34, 22, and 12 days apart, flow has also hot die picker and last up to 6-7days. Torboy not painful but bleeding seems to increase. OB History T2 L2 SAB1 IAB0 Ectopic0 Multiple0 Live Births2 Ore Mixer History LMP: 05/16/2021 (Exact Date), Having periods Age at Menarche: Age at First : Age at Menopause: Ore Mixer History Comments: Sexual Activity: Yes; Male Contraception: [...] external genitalia normal, normal Bartholin's glands, urethra, [place]'s glands, no vulvar lesions, no cervical lesions, good vaginal support, physiologic discharge present, normal appearing perineal body and perianal region BIMANUAL: deferred NEURO: alert and oriented x3,exam grossly non-focal EXTREMITIES: normal ASSESSMENT/PLAN: 1. Abnormal uterine bleeding (AUB) - ICD9: 626.9, ICD10: N93.9 - PELVIC US WHI - Aygestin taper Melissa Arango APRN.CNP Medical Decision Making: Problems: Low: Acute, uncomplicated illness or injury Data: Unique test(s) ordered: 1 Risk: Low: Low risk from testing/treatment Moderate: Drug management Medical Decision Making Level: 3 - Low documented in this encounterMer[facility] History of Past illness Narrative* Problem Noted [...] period 6 08/16/2016 Overview: States Rhogam at [facility] after SAB 06/2015 MH 06/16/2015Pt is [...] of this encounter (statuses as of 06/12/2021) [facility] History of Past illness Narrative* Problem Noted [...] period 6 08/16/2016 Overview: States Rhogam at [facility] after SAB 06/2015 MH 06/16/2015Pt is [...] of this encounter (statuses as of 06/12/2021) [facility] History of Past illness Narrative* Problem Noted [...] period 6 08/16/2016 Overview: States Rhogam at [facility] after SAB 06/2015 MH 06/16/2015Pt is [...] of this encounter (statuses as of 06/13/2021) [facility] History of Past illness Narrative* Problem Noted [...] period 6 08/16/2016 Overview: States Rhogam at [facility] after SAB 06/2015 MH 06/16/2015Pt is [...] of this encounter (statuses as of 06/22/2021) [facility] History of Past illness Narrative* Problem Noted [...] period 6 08/16/2016 Overview: States Rhogam at [facility] after SAB 06/2015 MH 06/16/2015Pt is [...] of this encounter (statuses as of 07/31/2021) [facility] of Past illness Narrative* Problem Noted Date Resolved Date Supervision of high-risk pre gnancy of elderly multigravida (>= 35 years old at time of delivery) 01/02/2016 08/16/2016 Overview: Declines aneuploidy testing Advanced maternal age in multigravida 06/16/2015 10/20/2015 Overview: 06/16/2015Advanced maternal age discussed.[facility] handouts on Genetic Amniocentesis, CVS, NIPT and nuchal ultrasound discussed. Level II ultrasound and 's services discussed. TKRYuliya History of section 06/16/201507/24 Overview: 06/16/2015Pt had a previous C section. She desires a repeat C section by Dr Sparrow.TKRN Rh negative state in antepartum period 6 08/16/2016 Overview: States Rhogam at [facility] after SAB 06/2015 MH 06/16/2015Pt is [...] of this encounter (statuses as of 12/28/2021) [facility]* Diagnosis Abnormal uterine bleeding (AUB)- Primary [facility] encounter [facility]* Diagnosis DUB (dysfunctional uterine bleeding)- Primary Other disorder of menstruation and other abnormal bleeding from female genital tract [facility] Adenomyosis- Primary Endometriosis of uterus [facility]* Diagnosis Encounter for IUD insertion- Primary Encounter for insertion of intrauterine contraceptive device [facility] [facility] Surveillance of intrauterine contraceptive device- Primary Surveillance of previously prescribed intrauterine contraceptive device [facility] Diagnosis Encounter for gynecological examination (general) (routine) without abnormal findings- Primary Screening for cervical cancer Screening for malignant neoplasm of the cervix Encounter for screening mammogram for breast cancer Encounter for screening for human papillomavirus (HPV) Special screening examination for human papillomavirus (HPV) documented [facility] this [facility] noteNo assessment information availableWMartin [facility] Work Phone: Evaluation note* Diagnosis Onset Date Resolution Status Anxiety and depression chron ic Elevated blood pressure reading acute Anxiety and depression chron ic [facility] Work Phone: Evaluation note* Diagnosis Encounter for gynecological examination (general) (routine) without abnormal findings- Primary Encounter for screening mammogram for breast cancer Screen for STD (sexually transmitted disease) Screening examination for venereal disease documented in this encounter [facility] Discharge instructionsAmbulatory Orders* Dermatology Location: None Selected * General Surgery Location: None Selected [facility] Work Phone: Reason for referral (narrative)* Diagnostic Procedure Only (Routine) - Closed Specialty Diagnoses / Procedures Referred By Lashell t Referred To Contact [facility] Diagnoses Abnormal uterine bleeding (AUB) Procedures PELVIC US WHI US PELVIC NONOBSTETRIC REAL-TIME IMAGE COMPLETE Melissa Arango APRN.CNP [address] [place] [address] [facility] [address] [place] [address] Referral ID Status Reason Start Date Expiration Date V isits Requested Visits Authorized [id number] Closed Auto-Generate d Referral 06/12/2021 06/12/2022 1 1 [facility] for referral (narrative)* Outpatient Procedure (Routine) - Pending Review Specialty Diagnoses / Procedures Referred By Lashell t Referred To Contact [facility] Diagnoses Adenomyosis Procedures INSERT INTRAUTERINE DEVICE LEVONORGESTREL IU 52MG 5 YR INSERT INTRAUTERINE DEVICE Melissa Arango APRN.CNP [address] [place] [address] [facility] [address] [place] [address] Referral ID Status Reason Start Date Expiration Date Visits Requested Visits Authorized [id number] Pending Review Auto-Generat ed Referral 06/13/2021 06/13/2022 1 1 [facility] for referral (narrative)* Outpatient Procedure (Routine) - Pending Review Specialty Diagnoses / Procedures Referred By Contac t Referred To Contact [facility] Diagnoses Encounter for IUD insertion Procedures INSERT INTRAUTERINE DEVICE LEVONORGESTREL IU 52MG 5 YR INSERT INTRAUTERINE DEVICE Melissa Arango APRN.CNP [address] [place] [address] [facility] [address] [place] [address] Referral ID Status Reason Start Date Expiration Date Visits Requested Visits Authorized [id number] Pending Review Auto-Generat ed Referral 06/22/2021 06/22/2022 1 1 [facility] Summary Purpose Family History No Family History Records Found Relationship Condition Age at Onset Recorded Date/T mino grandmother Malignant neoplasm Unknown Diabetes mellitus Unknown Myocardial infarction Unknown mother Hypertension Unknown father Seizure Unknown Hypertension Unknown Hyperlipidemia Unknown Relationship Condition Age at Onset Recorded Date/T mino grandmother Malignant neoplasm Unknown Diabetes mellitus Unknown Myocardial infarction Unknown mother Hypertension Unknown Malignant neoplasm Unknown father Seizure Unknown Hypertension Unknown Hyperlipidemia Unknown Advance Directives No Advanced Directives Records Found Advance Directive Response Recorded Date/ Time Advance Directives No August 11 1:27pm Living Will No August 11, 2020 1 :27pm Power of Environmental Services Director No August 11, 2020 1:27pm Advance Directive Response Recorded Date/ Time Advance Directives No August 11 12:27pm Living Will No August 11, 2020 1 2:27pm Power of Environmental Services Director No August 11, 2020 12:27pm Advance Directive Response Recorded Date/ Time Advance Directives No August 11 1:27pm Medications Administered Section Inactive Administered Medications - [...] Given 06/22/2021 10:38 AM EDT 1 Each Chief Complaint and Reason for Visit Chief Complaint SCREENING Chief Complaint ANXIETY AND DEPRESSI ON 6 wk FU SCREEN Reason for Visit Anxiety and depressi on Elevated blood pressure reading Anxiety and depression Chief Complaint Admit Date 3 M FU June 04, 2024 4:3 0pm 3 M FU September 02, 2024 8:54 am Reason for Visit Admit Date Anxiety and depression June 04, 2024 4:30pm Insomnia June 04, 2024 4:3 0pm Elevated blood pressure reading August 8:54am Preventative health care September 02, 2024 8:54am Insomnia September 02, 2024 8:54 am Additional Source Comments INFORMATION SOURCE (unrecogn ized section and content) DATE CREATED AUTHOR 09/12/2017 [facility] ([place]) DATE CREATED AUTHOR AUTHOR'S ORGANIZ ATION 10/15/2024 [facility] DATE CREATED AUTHOR AUTHOR'S ORGANIZ ATION 10/18/2024 [facility] Source Comments (unrecognize d section and content) In the event this informatio n is protected by the Federal Confidentiality of Alcohol and Drug Abuse Patient Records regulations: The Federal rules restrict any use of the information to criminally investigate or prosecute any alcohol or drug abuse patient.[facility] Center[facility] the event this information is protected by the Federal Confidentiality of Alcohol and Drug Abuse Patient Records regulations: The Federal rules restrict any use of the information to criminally investigate or prosecute any alcohol or drug abuse patient.[facility] Center[facility] the event this information is protected by the Federal Confidentiality of Alcohol and Drug Abuse Patient Records regulations: The Federal rules restrict any use of the information to criminally investigate or prosecute any alcohol or drug abuse patient.[facility] Center[facility] the event this information is protected by the Federal Confidentiality of Alcohol and Drug Abuse Patient Records regulations: The Federal rules restrict any use of the information to criminally investigate or prosecute any alcohol or drug abuse patient.[facility] Center[facility] the event this information is protected by the Federal Confidentiality of Alcohol and Drug Abuse Patient Records regulations: The Federal rules restrict any use of the information to criminally investigate or prosecute any alcohol or drug abuse patient.[facility] CenterIn the event this information is protected by the Federal Confidentiality of Alcohol and Drug Abuse Patient Records regulations: The Federal rules restrict any use of the information to criminally investigate or prosecute any alcohol or drug abuse patient.[facility] Center[facility] the event this information is protected by the Federal Confidentiality of Alcohol and Drug Abuse Patient Records regulations: The Federal rules restrict any use of the information to criminally investigate or prosecute any alcohol or drug abuse patient.[facility] Reason for Visit (unrecogniz ed section and content) Reason Comments Irregular Menstrual Cycle Reason Comments DUB Reason Comments Results Reason Onset Date Comments Insertion Of IUD 06/22/2021 Specialty Diagnoses / Procedures Referred By Lashell pereyra Referred To Contact [facility] Diagnoses Adenomyosis Encounter for insertion of intrauterine contraceptive device Encounter for removal of intrauterine contraceptive device Procedures INSERT INTRAUTERINE DEVICE LEVONORGESTREL IU 52MG 5 YR INSERT INTRAUTERINE DEVICE REMOVE INTRAUTERINE DEVICE Melissa Arango APRN.MEDICAL FRONT DESK SPECIALIST [address] [place] [address] [facility] [address] [place] [address] Referral ID Status Reason Start Date Expiration Date Visits Requested Visits Authorized [id number] Authorized Auto-Generat ed Referral 06/14/2021 03/24/2022 2 2 Reason Comments IUD week f/u Reason Comments [facility] Teams (unrecognized sec tion and content) Unemployment Claims Adjudicator Relationship Specialty Start Date End Date Suzy Hernadez DO PCP - General Family Practice 12/28/09 Unemployment Claims Adjudicator Relationship Specialty Start Date End Date Suzy Hernadez DO PCP - General Family Practice 12/28/09 Unemployment Claims Adjudicator Relationship Specialty Start Date End Date Suzy Hernadez DO PCP - General Family Practice 12/28/09 Unemployment Claims Adjudicator Relationship Specialty Start Date End Date Suzy Hernadez DO PCP - General Family Practice 12/28/09 Unemployment Claims Adjudicator Relationship Specialty Start Date End Date Suzy Hernadez DO PCP - General Family Practice 12/28/09 Unemployment Claims Adjudicator Relationship Specialty Start Date End Date Suzy Hernadez DO PCP - General Family Medicine 12/28/09 Team Status: Active Member Role Status Dates Dr. Suzy Hernadez DO Family Provider Active Dr. Rhina Street MD Primary Care Provider Active Team Status: Inactive Member Role Status Dates Dr. Rhina Street MD Primary Care Provider, Refer ring Provider Active Huseyin Quintana PA, PA Attending Provider Active Team Status: Inactive Member Role Status Dates Dr. Rhina Street MD Primary Care Provider Active Nanci Arango CERTIFIED RECREATIONAL THERAPIST, CERTIFIED RECREATIONAL THERAPIST-C Attending Provider, Referring Provider Active Team Status: Inactive Member Role Status Dates Dr. Rhina Street MD Primary Care Provider Active Start: June 04, 2024 End: June 04, 20[address] MD Attending Provider Active Start: June 04, 2024 End: June 04, 20[address] MD Referring Provider Active Start: June 04, 2024 End: June 04, 2024 Team Status: Inactive Member Role Status Dates Dr. Rhina Street MD Primary Care Provider Active Start: September 02, 2024 End: September 02, 20[address] MD Attending Provider Active Start: September 02, 2024 End: September 02, 20[address] MD Referring Provider Active Start: September 02, 2024 End: September 02, 2024 Team Status: Active Member Role Status Dates Dr. Rhina Street MD Primary Care Provider Active Start: September 02, [address] MD Attending Provider Active Start: September 02, [address] MD Referring Provider Active Start: September 02, 2024 Unemployment Claims Adjudicator Relationship Specialty Start Date End Date Suzy Hernadez DO (Fax) PCP - General Family Medicine 12/28/09 Goals (unrecognized section and content) Goals may be documented in a n alternate sectionGoals may be documented in an alternate sectionGoals may be documented in an alternate sectionGoals may be documented in an alternate section FOR RECORDS PERTAINING TO PATIENTS WHO ARE [...] BE BASED ON THE PRIMARY CLINICAL RECORDS. [employer] provides no warranty or guarantee of the accuracy or completeness of information in this document.
== END | disposition home or self-care (01) ==
LOC: OPBI 08:01
PROVIDERS: PCP Internal Medicine; Referring Provider Internal Medicine; Visit Provider Internal Medicine
DX: Z12.31 Encounter for screening mammogram for malignant neoplasm of breast (principal)
CPT/HCPCS: 77063; 77067

== ENCOUNTER 2025-02-17 11:18 | Day surgery (SDC) | payer OTHER, SELFPAY ==
[2025-02-17] VITALS (9 sets, daily range): BP systolic 115–126; BP diastolic 62–79; PULSE 68–82; RESP 16–116; TEMP 36.1–36.8; O2SAT 99–100; BMI 37.3
[2025-02-17 11:35] LABS: Internal QC Validated? YES +Cl - CLEAR BKGD; Pregnancy, Urine Negative Negative; Record Kit Lot#,Urine Preg 0000980607
--- NOTE | 2025-02-17 11:36 | PCM.HP.STD ---
[facility] - General General Date of Admission: 02/24/25 Date of Service: 02/17/25 Chief Complaint: Screening colonoscopy HPI Narrative SHAHEEN AN, is a 44 F who presents [today for screening colonoscopy. She is never had a colonoscopy in the past she does have a family history of colon cancer in a second-degree relative. She is not having any nausea, vomiting or diarrhea. She does not take any medicines on a daily basis except for buspirone. She does take some supplements on a daily basis. Overall she is in very good health.] [facility] Medical History (Updated 02/16/25 @ 10:22 by Leeanne Min) Wears contact lenses Anxiety History of steroid therapy Dermatitis Neuropathy due to herpes zoster Shingles Colon cancer screening Insomnia Preventative health care Menstrual irregularity H/O emotional problems Seasonal allergies Home Medications ?Medication ?Instructions ?Recorded ?Last Taken ?Type levonorgestrel (Mirena) 1 device intrauterine ONCE 07/17/21 Unknown History buspirone 10 mg tablet 20 mg (2 x 10 mg) PO BID 3 months 09/02/24 Unknown Rx #360 tabs trazodone 50 mg tablet 50 mg PO QHS PRN insomnia #90 tabs 09/02/24 Unknown Rx ascorbic acid (vitamin C) 500 mg 500 mg PO DAILY 02/16/25 Unknown History tablet (C-500) cholecalciferol (vitamin D3) 25 25 mcg PO DAILY 02/16/25 Unknown History mcg (1,000 unit) capsule (Vitamin D3) zinc gluconate 50 mg tablet 50 mg PO DAILY 02/16/25 Unknown History Allergy/AdvReac Type Severity Reaction Status Date / Time No Known Allergies Allergy Verified 02/17/25 11:36 Family History Grandmother Cancer Diabetes Myocardial infarction Mother Hypertension Cancer uterus , HER positive breast Father Seizures Hypertension Hyperlipemia Surgical History (Updated 02/16/25 @ 10:22 by Leeanne Min) History of hysteroscopy History of History of microdiscectomy Social History Smoking Status: Former smoker alcohol intake: current alcohol intake frequency: a few times a week Alcohol type: beer substance use type: does not use what type of physical activity do you participate in: none ROS Constitutional Constitutional: Denies fatigue, fever(s), poor appetite, weight gain or weight loss Gastrointestinal Gastrointestinal: Denies belching, bloating, change in bowel habits, change in stool character, chewing difficulty, coffee ground emesis, constipation, cramping, diarrhea, dyspepsia, dysphagia, early satiety, excessive flatus, fecal incontinence, heartburn, hematemesis, hematochezia, hemorrhoids, loose stools, melena, nausea, odynophagia, rectal bleeding, tenesmus, vomiting or weight changes Physical Exam Const alert, oriented x3, no apparent distress and healthy appearing General Appearance: cooperative GI normal to inspection, nondistended, normoactive bowel sounds, soft to palpation, non-tender and non-distended Percussion: normal to percussion Rectal Exam: deferred Results Lab / Micro Data Labs: Laboratory Results - last 24 hr 02/17/25 11:27: Urine Test Negative Assessment & Plan Assessment/Plan (1) Colon cancer screening: PLAN: She was explained alternatives, risk and benefits clued not withstanding bleeding, infection, sepsis, perforation, need for MedSurg and . She well have an ASA of 3.
[2025-02-17] MEDS: Lactated Ringers 1,000 ML 15 ML IV (11:45)
--- NOTE | 2025-02-17 12:19 | PRE.ANES_ITS ---
ASA Classification* ASA Classification ASA Classification: 2 Assessment & Plan Anesthesia* Anesthesia Assessment Anesthesia Assessment: Discussed sedation and/or anesthesia options, risks, benefits, and alternatives with patient/parents/legal guardian/POA. Questions invited. The patient/parents/legal guardian/POA seems to understand and agrees to proceed with anesthesia plan. Reviewed the physical assessment, medical history, allergy history and patient home medications list prior to surgery/procedure/anesthetic and documented any changes. Performed airway and anesthesia risk assessments. Anesthesia Type Anesthesia Type: MAC History Source History Obtained from:: Patient and Chart Anesthesia Focused Assessment* Temperature: 98.2 F Pulse Rate: 74 Blood Pressure: 126/79 Respiratory Rate: 116 Pulse Ox: 100 Oxygen Delivery Method: Room Air Airway Assessment Mouth opens: >3 cm Mallampati Score: III Teeth Condition: Intact Neck Range of motion (ROM): Full ROM Labs Anesthesia Preop lab: CBC WBC, (4.4-11.0) 4.8 K/mm3 09/02/24, 09:37 RBC, (4.2-5.4) 4.46 M/mm3 09/02/24, 09:37 Hgb, (12.0-15.0) 13.3 g/dL 09/02/24, 09:37 Hct, (37-47) 39.3 % 09/02/24, 09:37 Plt Count, (150-450) 201 K/mm3 09/02/24, 09:37 CHEMISTRY Potassium, (3.3-5.1) 3.9 mmol/L 09/02/24, 09:37 Sodium, (133-145) 140 mmol/L 09/02/24, 09:37 BUN, (4-19) 14 mg/dL 09/02/24, 09:37 Creatinine, (0.70-1.20) 0.69 mg/dL L 09/02/24, 09:37 Glucose, (70-99) 85 mg/dL 09/02/24, 09:37 TSH, (0.358-3.74) 2.18 uIU/mL 05/19/21, 08:48 COAG Urine Test Negative Negative Today, 11:27 Pre-Assessment Diagnosis/Proposed Procedure Planned Operative Procedure(s): COLONOSCOPY Anesthesia History Anesthesia History - animal assistant: Anesthesia History - animal assistant Hx Hospitalization No 02/16/25 10:22 Any Problems With Anesthesia No 02/16/25 10:22 Cholinesterase deficiency No 02/16/25 10:22 You/Your Family Experience No 02/16/25 10:22 fever (hyperthermia) with Relationship Recent Exposure to Contagious No 02/17/25 11:37 Disease Does patient have nerve No 02/16/25 10:22 stimulator Patient instructed to have device shut off --Does patient have Pacemaker No 02/17/25 11:37 or ICD? When Was Last Pacemaker Check QUESTION #4 FULL TEXT: You/Your Family Experience fever (hyperthermia) with Anesthesia Last Oral Intake Last Oral intake: Last Oral Intake NPO since 08:30 02/17/25 11:37 Meds taken in AM with sips of No 02/17/25 11:37 water? Meds patient instructed to take am of surgery PONV PONV - animal assistant: PONV - animal assistant Female Yes 02/16/25 10:22 HX of Motion Sickness No 02/16/25 10:22 HX of N/V After Surgery No 02/16/25 10:22 Non-Smoker Yes 02/16/25 10:22 Duration of Surgery greater No 02/16/25 10:22 than 60 minutes Number of Risk Factors 2 02/16/25 10:22 PONV Score Moderate Risk 02/16/25 10:22 Height & Weight Height & Weight: Anesthesia: Height & Weight Height 5 ft 6 in 02/17/25 11:37 Weight: 105 kg 02/17/25 11:37 Body Mass Index (BMI) 37.3 02/17/25 11:37 Respiratory Assessment Respiratory Assessment - animal assistant: Respiratory Tract Infection Hx - animal assistant Hx Respiratory Tract Infection No 02/16/25 10:22 STOP Sleep Apnea STOP Sleep Apnea - animal assistant: STOP Sleep Apnea - animal assistant Hx Hypertension No 02/16/25 10:22 Hx Sleep Apnea No 02/16/25 10:22 CPAP No 02/16/25 10:22 BIPAP Do you snore loudly (louder No 02/16/25 10:22 than talking or can be heard Do you often feel tired/ No 02/16/25 10:22 fatigued/ sleepy during daytime? Has anyone observed you stop No 02/16/25 10:22 breathing during sleep? STOP Results Negative 02/16/25 10:22 QUESTION #5 FULL TEXT : Do you snore loudly (louder than talking or can be heard through closed doors)? 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 Specify any problems Hx of Preganancy in last 3 No 02/16/25 10:22 Months Nurse Filling Out Transfusion VCHRISTIN 02/16/25 10:22 & Questions: Date: 02/16/25 02/16/25 10:22 Time: 10:23 02/16/25 10:22 Patient unable to answer at this time (ie. confused, unrespo /Reproduction History /Reproductive History - animal assistant: /Reproductive Hx- animal assistant Hx Now No 02/16/25 10:22 Gestational Age (in weeks): EDC: Hx Hx Para Hx Section SAB No 02/16/25 10:22 Does the father of the baby or his family experience fever w Father of the baby Malignant Hypertension history comment Active Medications Active Medications: Current Medications Generic Name Dose Route Start Last Admin Trade Name Freq PRN Reason Stop Dose Admin Lactated Ringer's 1,000 mls @ 15 mls/hr 02/17/25 11:30 02/17/25 11:45 IV 15 mls/hr .Q48H [place] Administration PFSH Medical History (Updated 02/16/25 @ 10:22 by Leeanne Min) Wears contact lenses Anxiety History of steroid therapy Dermatitis Neuropathy due to herpes zoster Shingles Colon cancer screening Insomnia Preventative health care Menstrual irregularity H/O emotional problems Seasonal allergies Home Medications ?Medication ?Instructions ?Recorded ?Last Taken ?Type levonorgestrel (Mirena) 1 device intrauterine ONCE 0 07/17/21 Unknown History buspirone 10 mg tablet 20 mg (2 x 10 mg) PO BID 3 m onths 09/02/24 Unknown Rx #360 tabs trazodone 50 mg tablet 50 mg PO QHS PRN insomnia #9 0 tabs 09/02/24 Unknown Rx ascorbic acid (vitamin C) 500 mg 500 mg PO DAILY 02/16 Unknown History tablet (C-500) cholecalciferol (vitamin D3) 25 25 mcg PO DAILY Unknown History mcg (1,000 unit) capsule (Vitamin D3) zinc gluconate 50 mg tablet 50 mg PO DAILY 02/16/25 Un known History Allergy/AdvReac Type Severity Reaction Status Date / Time No Known Allergies Allergy Verified 02/17/25 11:36 Family History Grandmother Cancer Diabetes Myocardial infarction Mother Hypertension Cancer uterus , HER positive breast Father Seizures Hypertension Hyperlipemia Surgical History (Updated 02/16/25 @ 10:22 by Leeanne Min) History of hysteroscopy History of History of microdiscectomy Social History Smoking Status: Former smoker alcohol intake: current alcohol intake frequency: a few times a week Alcohol type: beer substance use type: does not use what type of physical activity do you participate in: none Review of Systems (Anesthesia) ROS Narrative System reviewed and no additional complaints, except as documented. Physical Exam Const alert, oriented x3 and average body habitus Resp normal respiratory effort, normal air movement and clear to auscultation bilaterally Cardio regular rate, regular rhythm and no murmurs; Negative for diaphoretic
--- NOTE | 2025-02-17 13:08 | OP.COLON_ITS ---
Patient Name: Genet Chavarria Procedure Date: 02/17/2025 12:29 PM Date of : 1980 Age: 44 Procedure: Colonoscopy Indications: Screening for colorectal malignant neoplasm Providers: Thanh Squires DO Medicines: Monitored Anesthesia Care Patient Profile: This is a 44 year old female. Refer to note in patient chart for documentation of history and physical. Last Colonoscopy: none. The patient's first colonoscopy is today. Complications: No immediate complications. Procedure: Pre-Anesthesia Assessment: - Prior to the procedure, a History and Physical was performed, and patient medications and allergies were reviewed. The patient is competent. The risks and benefits of the procedure and the sedation options and risks were discussed with the patient. All questions were answered and informed consent was obtained. Patient identification and proposed procedure were verified by the physician in the pre-procedure area. Mental Status Examination: alert and oriented. Airway Examination: normal oropharyngeal airway and neck mobility. Respiratory Examination: clear to auscultation. CV Examination: normal. Prophylactic Antibiotics: The patient does not require prophylactic antibiotics. Prior Anticoagulants: The patient has taken no anticoagulant or antiplatelet agents except for NSAID medication. ASA Grade Assessment: II - A patient with mild systemic disease. After reviewing the risks and benefits, the patient was deemed in satisfactory condition to undergo the procedure. The anesthesia plan was to use monitored anesthesia care (MAC). Immediately prior to administration of medications, the patient was re-assessed for adequacy to receive sedatives. The heart rate, respiratory rate, oxygen saturations, blood pressure, adequacy of pulmonary ventilation, and response to care were monitored throughout the procedure. The physical status of the patient was re-assessed after the procedure. After I obtained informed consent, the scope was passed under direct vision. Throughout the procedure, the patient's blood pressure, pulse, and oxygen saturations were monitored continuously. The Colonoscope was introduced through the anus and advanced to the cecum, identified by appendiceal orifice and ileocecal valve. The colonoscopy was performed without difficulty. The patient tolerated the procedure well. The quality of the bowel preparation was adequate. The ileocecal valve, appendiceal orifice, and rectum were photographed. Scope In: 12:47:45 PM Scope Withdrawal Time 0 hours 9 minutes 52 seconds Scope Out: 1:01:04 PM Total Procedure Duration Time 0 hours 13 minutes 19 seconds Findings: The perianal and digital rectal examinations were normal. Many small and large-mouthed diverticula were found in the recto-sigmoid colon and sigmoid colon. Impression: - Diverticulosis in the recto-sigmoid colon and in the sigmoid colon. - No specimens collected. Recommendation: - Discharge patient to home. - Resume previous diet. - Continue present medications. - Await pathology results. - Repeat colonoscopy in 10 years for screening purposes. Procedure Code(s): --- Professional --- G0121, Colorectal cancer screening; colonoscopy on individual not meeting criteria for high risk CPT copyright 2021 [employer]. All rights reserved. The codes documented in this report are preliminary and upon terminal clerk review may be revised to meet current compliance requirements. Thanh Squires DO 02/17/2025 1:08:06 PM This report has been signed electronically. Number of Addenda: 0 Note Initiated On: 02/17/2025 12:29 PM
--- NOTE | 2025-02-17 13:08 | OP.PROVAT_ITS ---
02/17/[address] MD [address] [place] [address] [place] [address] Re : Colonoscopy procedure for Genet Chavarria Dear Dr. Street This procedure was performed on Monday, February 17, 2025. My impressions and recommendations are as follows: Impressions : - Diverticulosis in the recto-sigmoid colon and in the sigmoid colon. - No specimens collected. Recommendations : - Discharge patient to home. - Resume previous diet. - Continue present medications. - Await pathology results. - Repeat colonoscopy in 10 years for screening purposes. My findings are described in the full procedure note, which is enclosed. If I can be of further assistance, please feel free to contact me at . Sincerely, Thanh Squires, 02/17/2025 1:08:06 PM This report has been signed electronically.
--- NOTE | 2025-02-17 13:09 | PCM.POST.ANE ---
Anesthesia: Postop Eval I Current Vital Signs Temperature: 98 F Pulse Rate: 82 Blood Pressure: 122/62 Respiratory Rate: 16 Pulse Ox: 100 Oxygen Delivery Method: Room Air Assessment Airway patent: Yes Spontaneous unlabored respirations: Yes Mental status: Awake and Calm nausea: No Vomiting: No Anesthesia Complication: No Fluid Hydration Crystalloid volume administer (ml): 500 Total IV fluid infused: 500 Progress Note Anesthesia document: Postop Eval 1 completed: Yes
--- NOTE | 2025-02-17 16:05 | POSTOPAN2_ITS ---
Anesthesia Postop Eval I Sum Postop Eval Completion status Anesthesia document: Postop Eval 1 completed: Yes Anesthesia Postop Eval I Summary Anesthesia Postop Eval I Summary: Anesthesia Postop Eval I: Assessment Summary Airway patent Yes 02/17/25 13:09 [email or web address] [email or web address] Spontaneous unlabored Yes 02/17/25 13:09 [email or web address] [email or web address] respirations Mental status Awake,Calm 02/17/25 13:09 PHARMACY [email or web address].[email or web address] nausea No 02/17/25 13:09 PHARMACY HELPER.[email or web address] Vomiting No 02/17/25 13:09 PHARMACY HELPERNATALIE Anesthesia Postop Eval I: Fluid Summary Crystalloid volume administer 500 02/17/25 13:09 PHARMACY [email or web address].[email or web address] (ml) Colloids volume administered ( ml) Blood Product volume administered (ml) Total IV fluid infused 500 02/17/25 13:09 PHARMACY [email or web address].[email or web address] Anesthesia Postop Eval I: Summary Notes Anesthesia Complication No 02/17/25 13:09 WOODY Anesthesia Complication Comment: Post-operative progress note Anesthesia: Postop Eval II Evaluation Mental status: Awake Pain Level: 0 nausea: No Vomiting: No Complications Anesthesia Complication: No
--- NOTE | 2025-02-17 16:05 | PCM.POSTANE2 ---
Anesthesia Postop Eval I Sum Postop Eval Completion status Anesthesia document: Postop Eval 1 completed: Yes Anesthesia Postop Eval I Summary Anesthesia Postop Eval I Summary: Anesthesia Postop Eval I: Assessment Summary Airway patent Yes 02/17/25 13:09 IRONWORKER MACHINE [email or web address] Spontaneous unlabored Yes 02/17/25 13:09 IRONWORKER MACHINE OPERATOR.[email or web address] respirations Mental status Awake,Calm 02/17/25 13:09 IRONWORKER MACHINE OPERATOR.ROLLY nausea No 02/17/25 13:09 IRONWORKER MACHINE OPERATOR.ROLLY Vomiting No 02/17/25 13:09 IRONWORKER MACHINE OPERATORNATALIE Anesthesia Postop Eval I: Fluid Summary Crystalloid volume administer 500 02/17/25 13:09 IRONWORKER MACHINE OPERATOR.ROLLY (ml) Colloids volume administered ( ml) Blood Product volume administered (ml) Total IV fluid infused 500 02/17/25 13:09 IRONWORKER MACHINE OPERATOR.ROLLY Anesthesia Postop Eval I: Summary Notes Anesthesia Complication No 02/17/25 13:09 WOODY Anesthesia Complication Comment: Post-operative progress note Anesthesia: Postop Eval II Evaluation Mental status: Awake Pain Level: 0 nausea: No Vomiting: No Complications Anesthesia Complication: No
== END 2025-02-17 13:43 | disposition home or self-care (01) ==
LOC: EN 11:20 → AC 11:22
PROVIDERS: Student in an Organized Health Care Education/Training Program; PCP Internal Medicine; Referring Provider Internal Medicine; Visit Provider Internal Medicine Gastroenterology
PROC: 0DJD8ZZ Inspection of Lower Intestinal Tract, Via Natural or Artificial Opening Endoscopic (ICD-10-PCS; CPT 45378; principal; 2025-02-17 12:25)
DX: Z12.11 Encounter for screening for malignant neoplasm of colon (principal); K57.30 Diverticulosis of large intestine without perforation or abscess without bleeding; Z87.891 Personal history of nicotine dependence; Z80.0 Family history of malignant neoplasm of digestive organs; F41.9 Anxiety disorder, unspecified; Z79.899 Other long term (current) drug therapy
CPT/HCPCS: 45378; 81025